=== PATIENT | female | born 1950 | race Caucasian/White ===

== ENCOUNTER → 2017-06-29 | Outpatient (CLI) | payer OTHER ==
[~2017-06-29] MED LIST: ANASTROZOLE1 M1 PO; ASPI-COR81 M1 PO; CLOPIDOGREL75 MG PO; DIABETA5 MG PO; HYDRALAZINE50 MG PO; HYDROCHLOROTH12.5 M2 PO; IRON325 M1 PO; ISOSORBIDE30 MG PO; JANUMET PO; LISINOPRIL/HCTZ1 TA3 PO; LOPRESSOR100 MG PO; LOVASTATIN10 MG PO; METFORMIN1000 MG PO; MULTI VITAMINS1 TAB PO; NATURE'S BLEND F1 MG PO; OSCAL; VIT; VITAMIN D; VITAMIN D32000 UNIT PO; ZOMETA IV
== END | disposition home or self-care (01) ==
LOC: MAMMO 08:39
DX: D05.90 Unspecified type of carcinoma in situ of unspecified breast (principal); Z85.3 Personal history of malignant neoplasm of breast

== ENCOUNTER → 2017-07-24 | Outpatient (CLI) | payer OTHER ==
[2017-07-24 11:51] LABS: INTERNATIONAL NORM RATIO 2.2 (2.0-3.5)
== END | disposition home or self-care (01) ==
LOC: LAB 10:55
PROVIDERS: Internal Medicine
DX: Z95.2 Presence of prosthetic heart valve (principal)

== ENCOUNTER → 2018-04-02 | Outpatient (CLI) | payer OTHER ==
[2018-04-02 11:26] LABS: CREATININE 1.94 mg/dL (0.55-1.02); FREE T4 1.28 ng/dl (0.76-1.46); POTASSIUM 5.1 mmol/L (3.5-5.1); TOTAL PROTEIN 7.9 gm/dL (6.4-8.2)
[2018-04-02 11:32] LABS: THYROID STIM HORMONE (HS) 2.5 uIU/ml (0.358-4.75)
== END | disposition home or self-care (01) ==
LOC: LAB 10:30
PROVIDERS: Internal Medicine
DX: I10 Essential (primary) hypertension (principal); E55.9 Vitamin D deficiency, unspecified

== ENCOUNTER → 2018-07-03 | Outpatient (CLI) | payer OTHER ==
[~2018-07-03] MED LIST changes: +GLUCOPHAGE500 M1 PO; +GLUCOTROL XL5 MG PO; +IRON325 M3 PO; +LOSARTIN PO; +LOVASTATIN PO; +PACERONE PO
== END | disposition home or self-care (01) ==
LOC: MAMMO 12:29
DX: R92.8 Other abnormal and inconclusive findings on diagnostic imaging of breast (principal); C50.919 Malignant neoplasm of unspecified site of unspecified female breast; Z90.11 Acquired absence of right breast and nipple

== ENCOUNTER → 2018-07-30 | Outpatient (CLI) | payer OTHER | END | disposition home or self-care (01) | LOC: LAB 15:14 | DX: N39.0 Urinary tract infection, site not specified (principal) ==

== ENCOUNTER → 2018-08-02 | Outpatient (CLI) | payer OTHER ==
[2018-08-03 05:09] LABS: TOTAL PROTEIN, SERUM 7.4 g/dL (6.0-8.5)
[2018-08-03 11:06] LABS: HEPATITIS B SURFACE AG Negative (Negative); HEPATITIS C VIRUS ANTIBODY <0.1 s/co (0.0-0.9)
[2018-08-03 14:07] LABS: A/G RATIO 1.2 (0.7-1.7); ALBUMIN 4.1 g/dL (2.9-4.4); ALPHA-1-GLOBULIN 0.2 g/dL (0.0-0.4); ALPHA-2-GLOBULIN 0.8 g/dL (0.4-1.0); BETA GLOBULIN 1.1 g/dL (0.7-1.3); GAMMA GLOBULIN 1.2 g/dL (0.4-1.8); GLOBULIN, TOTAL 3.3 g/dL (2.2-3.9); M-SPIKE 0.4 g/dL (Not Observed)
[2018-08-03 15:09] LABS: ATYPICAL PANCA <1:20 titer (Neg:<1:20); CYTOPLASMIC (C-ANCA) <1:20 titer (Neg:<1:20)
[2018-08-06 11:04] LABS: GLOMERULAR BASEMENT AB 082719 5 units (0-20)
[2018-08-06 13:08] LABS: ALBUMIN, URINE 45.7 % (.); ALPHA-1-GLOBULIN, URINE 2.4 % (.); ALPHA-2-GLOBULIN, URINE 11.8 % (.); BETA GLOBULIN, URINE 16.1 % (.); M-SPIKE, % Not Observed % (Not Observed); PROTEIN,TOTAL - URINE RANDOM 44.8 mg/dL (Not Estab.)
== END | disposition home or self-care (01) ==
LOC: LAB 10:59
PROVIDERS: Internal Medicine Nephrology
DX: R10.9 Unspecified abdominal pain (principal); N18.4 Chronic kidney disease, stage 4 (severe)

== ENCOUNTER → 2018-08-15 | Day surgery (SDC) | payer OTHER ==
[~2018-08-15] VITALS: Ht 165.1 cm; Wt 83.5 kg
--- NOTE | ~2018-08-15 | O ---
[place], [place] OPERATIVE NOTE NAME: [facility] MILIAN [facility] [id number] UNIT #: [id number] ROOM: DOCTOR: ZULEMA BURTON MD BIRTHDATE: [birth year] DOS: 08/15/2018 GASTROENDOSCOPIC REPORT HISTORY OF PRESENT ILLNESS: This is a 68-year-old patient who presented with chief complaint of Cologuard positivity. PAST MEDICAL HISTORY: Coronary artery disease, hypertension, diabetes mellitus, and hyperlipidemia. PAST SURGICAL HISTORY: Status post aortic valve, toe amputation, coronary artery stents x 5. ALLERGIES: IODINE. FAMILY HISTORY: Noncontributory. SOCIAL HISTORY: Nonsmoker, nonalcohol consumer. PROCEDURE: Today's procedure part of investigation is colonoscopy plus piecemeal polypectomy. PREMEDICATION: Propofol. SCOPE: Olympus folding colonoscope 10L video. REPORT: After putting the patient in left lateral position and application of lubricant to the scope, the scope was introduced. Thereafter, under direct visualization, advanced through the length of colon without difficulty. Base of the cecum explored, appendiceal orifice was identified and the ileocecal valve was defined. Sessile polypoid lesion in mid ascending colon with piecemeal polypectomy was removed. The patient extubated, tolerated the procedure well. IMPRESSION: Sessile polyp lesion, mid ascending colon, status post piecemeal polypectomy. PLAN: High fiber fruit diet. ACTIVITY: Ad zoila. FOLLOWUP: Routinely in office and with us in GI Clinic. This patient needs another colonoscopy in 5 years. [place], [place] OPERATIVE NOTE NAME: [facility] MILIAN [facility] #: [id number] UNIT #: [id number] ROOM: DOCTOR: ZULEMA BURTON MD BIRTHDATE: [birth year] ZULEMA BURTON MD CM:OPRECORD:OPERATIVE NOTE [id number] ZULEMA BURTON MD 08/15/18 0854 interface
[2018-08-15 07:20] VITALS: BP 167/44
[2018-08-15 08:35] VITALS: BP 114/36
[2018-08-15 08:50] VITALS: BP 132/28
[2018-08-15 09:04] VITALS: BP 116/28
== END | disposition home or self-care (01) ==
LOC: SDC 02:35
DX: D12.2 Benign neoplasm of ascending colon (principal); I10 Essential (primary) hypertension; E11.9 Type 2 diabetes mellitus without complications; E78.00 Pure hypercholesterolemia, unspecified; I25.118 Atherosclerotic heart disease of native coronary artery with other forms of angina pectoris; J44.9 Chronic obstructive pulmonary disease, unspecified; K21.9 Gastro-esophageal reflux disease without esophagitis; Z88.5 Allergy status to narcotic agent; Z88.8 Allergy status to other drugs, medicaments and biological substances; Z95.5 Presence of coronary angioplasty implant and graft; Z98.890 Other specified postprocedural states; Z85.3 Personal history of malignant neoplasm of breast; Z80.0 Family history of malignant neoplasm of digestive organs; Z95.2 Presence of prosthetic heart valve; Z79.82 Long term (current) use of aspirin; Z79.899 Other long term (current) drug therapy; Z89.429 Acquired absence of other toe(s), unspecified side; Z83.3 Family history of diabetes mellitus; Z82.49 Family history of ischemic heart disease and other diseases of the circulatory system

== ENCOUNTER → 2018-09-10 | Outpatient (CLI) | payer OTHER ==
[2018-09-10 13:41] LABS: BASO % 0.6 % (0.0-1.0); EOS # 0.1 10*3/uL (0.0-0.4); EOS % 1.5 % (1.0-4.0); HEMATOCRIT 29.8 % (37.0-47.0); HEMOGLOBIN 9.5 g/dl (12.0-16.0); LYMPH # 1.2 10*3/uL (1.3-4.4); LYMPH % 24.3 % (27.0-41.0); MEAN CELL VOLUME 95.8 fl (81.0-99.0); MEAN CORPUSCULAR HGB 30.5 pg (27.0-31.0); MEAN CORPUSCULAR HGB CONC 31.9 g/dl (33.0-37.0); MEAN PLATELET VOLUME 12.3 fl (9.6-12.3); MONO # 0.3 10*3/uL (0.1-1.0); MONO % 6.2 % (3.0-9.0); NEUT # 3.2 10*3/uL (2.3-7.9); NEUT % 65.5 % (47.0-73.0); PLATELET COUNT AUTOMATED 157 10*3/uL (130-400); RED BLOOD COUNT 3.11 10*6/uL (4.10-5.10); WHITE BLOOD COUNT 4.8 10*3/uL (4.8-10.8)
[2018-09-10 13:52] LABS: CREATININE 1.71 mg/dL (0.55-1.02); POTASSIUM 5.1 mmol/L (3.5-5.1)
[2018-09-10 13:56] LABS: BILIRUBIN NEGATIVE (NEGATIVE); BLOOD 1+ (NEGATIVE); CLARITY CLEAR (CLEAR); COLOR YELLOW (YELLOW); GLUCOSE NEGATIVE (NEGATIVE); KETONE TRACE (NEGATIVE); LEUKO ESTERASE TRACE (NEGATIVE); NITRITE NEGATIVE (NEGATIVE); PH 5.5 (5.0-9.0); SPECIFIC GRAVITY 1.025 (1.005-1.030); UROBILINOGEN 0.2 E.U./dl (0.2-1.0)
[2018-09-10 14:04] LABS: BACTERIA 2+; EPITHELIAL CELLS 0-2
== END | disposition home or self-care (01) ==
LOC: LAB 12:50
PROVIDERS: Internal Medicine Nephrology
DX: N18.4 Chronic kidney disease, stage 4 (severe) (principal)

== ENCOUNTER → 2018-10-26 | Outpatient (CLI) | payer OTHER ==
[2018-11-01 16:08] LABS: ALBUMIN 3.6 g/dL (2.9-4.4); ALPHA-1-GLOBULIN 0.2 g/dL (0.0-0.4); BETA GLOBULIN 1.1 g/dL (0.7-1.3); GAMMA GLOBULIN 1.3 g/dL (0.4-1.8); GLOBULIN, TOTAL 3.6 g/dL (2.2-3.9); M-SPIKE 0.3 g/dL (Not Observed); TOTAL PROTEIN, SERUM 7.2 g/dL (6.0-8.5)
== END | disposition home or self-care (01) ==
LOC: LAB 12:26
PROVIDERS: Internal Medicine Nephrology
DX: N18.4 Chronic kidney disease, stage 4 (severe) (principal)

== ENCOUNTER → 2018-12-06 | Outpatient (CLI) | payer OTHER ==
[2018-12-06 10:15] LABS: BASO % 0.5 % (0.0-1.0); EOS # 0.1 10*3/uL (0.0-0.4); EOS % 0.9 % (1.0-4.0); HEMATOCRIT 33.3 % (37.0-47.0); HEMOGLOBIN 10.2 g/dl (12.0-16.0); LYMPH # 2.4 10*3/uL (1.3-4.4); MEAN CELL VOLUME 97.7 fl (81.0-99.0); MEAN CORPUSCULAR HGB 29.9 pg (27.0-31.0); MEAN CORPUSCULAR HGB CONC 30.6 g/dl (33.0-37.0); MEAN PLATELET VOLUME 12.1 fl (9.6-12.3); MONO # 0.6 10*3/uL (0.1-1.0); MONO % 7.1 % (3.0-9.0); NEUT # 4.7 10*3/uL (2.3-7.9); NEUT % 59.6 % (47.0-73.0); PLATELET COUNT AUTOMATED 163 10*3/uL (130-400); RED BLOOD COUNT 3.41 10*6/uL (4.10-5.10); RED CELL DISTRI WIDTH 16.1 % (0-14.5); WHITE BLOOD COUNT 7.9 10*3/uL (4.8-10.8)
[2018-12-06 10:40] LABS: CREATININE 2.01 mg/dL (0.55-1.02); POTASSIUM 5.5 mmol/L (3.5-5.1); TOTAL PROTEIN 8.5 gm/dL (6.4-8.2)
== END | disposition home or self-care (01) ==
LOC: LAB 09:38 → CT 11:00
PROVIDERS: Urology
DX: R31.9 Hematuria, unspecified (principal)

== ENCOUNTER → 2018-12-12 | Outpatient (CLI) | payer OTHER ==
[2018-12-12 11:51] LABS: BASO # 0.1 10*3/uL (0.0-0.1); BASO % 0.9 % (0.0-1.0); EOS # 0.1 10*3/uL (0.0-0.4); EOS % 1.3 % (1.0-4.0); HEMATOCRIT 32.3 % (37.0-47.0); LYMPH # 1.6 10*3/uL (1.3-4.4); LYMPH % 23.5 % (27.0-41.0); MEAN CELL VOLUME 97.6 fl (81.0-99.0); MEAN CORPUSCULAR HGB 30.2 pg (27.0-31.0); MEAN PLATELET VOLUME 12.3 fl (9.6-12.3); MONO # 0.4 10*3/uL (0.1-1.0); MONO % 6.3 % (3.0-9.0); NEUT # 4.5 10*3/uL (2.3-7.9); NEUT % 66.8 % (47.0-73.0); PLATELET COUNT AUTOMATED 160 10*3/uL (130-400); RED BLOOD COUNT 3.31 10*6/uL (4.10-5.10); RED CELL DISTRI WIDTH 16.1 % (0-14.5); RETICULOCYTE % 2.39 % (0.50-2.50); WHITE BLOOD COUNT 6.7 10*3/uL (4.8-10.8)
[2018-12-12 12:10] LABS: CREATININE 1.94 mg/dL (0.55-1.02); POTASSIUM 5.1 mmol/L (3.5-5.1); TOTAL PROTEIN 8.2 gm/dL (6.4-8.2)
[2018-12-12 12:23] LABS: BILIRUBIN NEGATIVE (NEGATIVE); BLOOD 1+ (NEGATIVE); CLARITY CLEAR (CLEAR); COLOR YELLOW (YELLOW); GLUCOSE NEGATIVE (NEGATIVE); KETONE NEGATIVE (NEGATIVE); LEUKO ESTERASE 1+ (NEGATIVE); NITRITE NEGATIVE (NEGATIVE); PH 5.5 (5.0-9.0); SPECIFIC GRAVITY 1.015 (1.005-1.030); UROBILINOGEN 0.2 E.U./dl (0.2-1.0)
[2018-12-12 12:52] LABS: FERRITIN 212.6 ng/mL (10.0-291.0)
[2018-12-12 13:21] LABS: WBC 16-20 wbc/hpf (0-5)
== END | disposition home or self-care (01) ==
LOC: LAB 11:12
PROVIDERS: Internal Medicine Hematology & Oncology; Nurse Practitioner Family
DX: C50.911 Malignant neoplasm of unspecified site of right female breast (principal); D47.2 Monoclonal gammopathy; D64.9 Anemia, unspecified; E11.9 Type 2 diabetes mellitus without complications; N28.9 Disorder of kidney and ureter, unspecified; I25.10 Atherosclerotic heart disease of native coronary artery without angina pectoris; I10 Essential (primary) hypertension

== ENCOUNTER → 2019-03-04 | Outpatient (CLI) | payer OTHER ==
[~2019-03-04] MED LIST changes: +BRILINTA90 M1 PO; +IMDUR SA30 MG PO; +JANUVIA50 MG PO; +LOVASTATIN40 MG PO; +METOPROLOL TART50 M1 PO; +METOPROLOL25 MG PO; +NOVOLOG FL100 UNIT/2 SQ; +SODIUM BICARBO650 MG PO; +TRADJENTA5 M1 PO
== END | disposition home or self-care (01) ==
LOC: LAB 09:15
DX: E11.65 Type 2 diabetes mellitus with hyperglycemia (principal)

== ENCOUNTER 2019-03-20 09:29 | Emergency (ER) | payer OTHER ==
[~2019-03-20] VITALS: Ht 170.1 cm; Wt 79.4 kg
--- NOTE | ~2019-03-20 | EKG ---
[place], [place] ELECTROCARDIOGRAM REPORT NAME: MATI MILIAN UNIT #: [id number] ROOM: DOCTOR[facility] D[facility] RE[facility] BIRTHDATE: [birth year] [facility] Test Date: 2019-03-20 Test Time: 09:34:56 Pat Name: MATI MILIAN Department: Room: Gender: F Loaf Counter: 15 : 1950 Requested By: JATINDER PETERSON Order Number: [id number] Reading MD: Savita Pisano Measurements Intervals [place] Rate: 104 P: 264 NC: 169 QRS: 86 QRSD: 161 T: -63 QT: 404 QTc: 532 Interpretive Statements Sinus or ectopic atrial tachycardia Ventricular premature complex Right bundle branch block No previous ECG available for comparison Electronically Signed On 03-21-2019 8:37:57 PDT by Savita Pisano CM:EKGRPT:ELECTROCARDIOGRAM REPORT [id number] JATINDER DONIS DRAFT REPORT JATINDER PETERSON M.D.
[~2019-03-20 09:29] MED LIST changes: -BRILINTA90 M1 PO; -IMDUR SA30 MG PO; -JANUVIA50 MG PO; -LOVASTATIN40 MG PO; -METOPROLOL TART50 M1 PO; -METOPROLOL25 MG PO; -NOVOLOG FL100 UNIT/2 SQ; -SODIUM BICARBO650 MG PO; -TRADJENTA5 M1 PO
[2019-03-20 10:02] LABS: BASO % 0.4 % (0.0-1.0); EOS % 0.4 % (1.0-4.0); HEMOGLOBIN 8.9 g/dl (12.0-16.0); LYMPH % 12.5 % (27.0-41.0); MEAN CELL VOLUME 92.3 fl (81.0-99.0); MEAN CORPUSCULAR HGB 27.4 pg (27.0-31.0); MEAN CORPUSCULAR HGB CONC 29.7 g/dl (33.0-37.0); MEAN PLATELET VOLUME 12.9 fl (9.6-12.3); MONO # 0.6 10*3/uL (0.1-1.0); MONO % 6.9 % (3.0-9.0); NEUT # 6.6 10*3/uL (2.3-7.9); NEUT % 79.4 % (47.0-73.0); PLATELET COUNT AUTOMATED 170 10*3/uL (130-400); RED BLOOD COUNT 3.25 10*6/uL (4.10-5.10); RED CELL DISTRI WIDTH 15.7 % (0-14.5); WHITE BLOOD COUNT 8.3 10*3/uL (4.8-10.8)
[2019-03-20 10:32] LABS: ALBUMIN 3.4 gm/dl (3.1-4.5); CREATININE 2.12 mg/dL (0.55-1.02); POTASSIUM 5.1 mmol/L (3.5-5.1); TOTAL PROTEIN 7.6 gm/dL (6.4-8.2)
[2019-03-20 10:37] LABS: TROPONIN I 7.72 ng/ml (<0.045)
[2019-03-20 11:10] VITALS: BP 121/57
[2019-03-20 11:13] LABS: ACT PARTIAL THROMBO TIME 86.1 SECONDS (20.0-32.1); INTERNATIONAL NORM RATIO > 9.3 (2.0-3.5)
== END 2019-03-20 11:44 | disposition short-term general hospital (02) ==
LOC: ED 09:29
PROVIDERS: Emergency Medicine
DX: I21.4 Non-ST elevation (NSTEMI) myocardial infarction (principal); I25.2 Old myocardial infarction; I50.9 Heart failure, unspecified; Z91.041 Radiographic dye allergy status; Z79.82 Long term (current) use of aspirin; Z79.899 Other long term (current) drug therapy

== ENCOUNTER 2019-04-23 11:25 | Inpatient (IN) | payer OTHER ==
[~2019-04-23] VITALS: Ht 170.2 cm; Wt 69.4 kg
--- NOTE | ~2019-04-23 | CON ---
[place], [place] REPORT OF CONSULTATION NAME: MATI MILIAN UNIT #: [id number] ROOM: 412 DOCTOR: MICHEAL JOHNSON,ZULEMA BIRTHDATE: [birth year] DOS: 04/26/2019 GASTROENDOSCOPIC REPORT HISTORY OF PRESENT ILLNESS: This is a 69-year-old patient who has presented with chief complaint of multiple medical history, among which has been anemia, breast CA and coronary artery disease, under investigation. PAST MEDICAL HISTORY: Associated with hyperlipidemia, hypertension, hypothyroidism, coronary artery disease, renal insufficiency, diabetes mellitus, breast CA. PAST SURGICAL HISTORY: Associated with mastectomy aortic valve prosthesis. FAMILY HISTORY: Noncontributory. ALLERGIES: IVP DYE, IODINE. MEDICATIONS: List has been reviewed, aspirin and iron has been noticed. MEDICATIONS: List has been reassessed. REVIEW OF SYSTEMS: HEENT: Denies double vision, blurred vision. RESPIRATORY: Denies acute shortness of breath. CARDIOVASCULAR: Denies acute chest pain. DIGESTIVE SYSTEM: No hematemesis, no hematochezia. PHYSICAL EXAMINATION: GENERAL: Nontoxic patient. HEENT: Head normocephalic, nontraumatic. Mouth and buccal mucosa benign. NECK: Supple, no thyromegaly, no cervical lymphadenopathy. CHEST: Symmetric anatomy, equal expansion. No wheeze, no rhonchi. HEART: Normal sinus rhythm, no gallop, no murmur. Right breast mastectomy noticed. ABDOMEN: Soft. No hepato-organomegaly. Bowel sounds present. No pulsatile mass. EXTREMITIES: No cyanosis, no pedal edema. NEUROLOGIC: Alert and oriented to time, place, and person. IMPRESSION: Anemia with need of transfusion, unstable myocardial infarction, coronary artery disease and obstruction that has been addressed by Dr. Ko, diabetes mellitus, hyperlipidemia, breast CA, aortic valve prosthesis anticoagulation on antiplatelet therapy. Latest lab results and records reviewed. Initial H and H of 8 and 27 on the , subsequent transfusion, subsequent improvement to 10 and 3, H and H. Labs reviewed. Comprehensive metabolic panel reassessed. Liver function tests normal. PLAN AND DISCUSSION: I would suggest that this patient may require needing an endoscopic assessment of upper GI tract since she has had a colonoscopy in [place], [place] REPORT OF CONSULTATION NAME: MATI MILIAN UNIT #: [id number] ROOM: 412 DOCTOR: MICHEAL JOHNSON,ZULEMA BIRTHDATE: [birth year]. Her anemia, most likely secondary to anticoagulation therapy if not any ulceration history on board. OTHER ADJUNCTIVE DIAGNOSES: As outlined above. We will continue workup. ZULEMA BURTON MD CM:CONSTR:REPORT OF CONSULTATION 12 05/10/19 0951 interface
--- NOTE | ~2019-04-23 | PR ---
[place], [place] PROGRESS NOTE NAME: MATI MILIAN [facility] #: [id number] UNIT #: [id number] ROOM: 412 DOCTOR: CAMILLA ELIZONDO MD BIRTHDATE: [birth year] DOS: 05/01/[address] Ko. SUBJECTIVE: She has coronary artery disease and had coronary artery stenting done recently and was admitted to the hospital because of some abdominal pain and she had an EGD done yesterday, which demonstrated gastritis. She does not have any nausea. Appetite is fine. She has not had any cough or any fever or chills. There had not been any chest pain or palpitations. No PND or orthopnea. She has not ambulated much since admission. PHYSICAL EXAMINATION: GENERAL: This revealed the patient is very pleasant, alert. She looks pale. VITAL SIGNS: Pulse is 70 and regular, blood pressure was 126/54. NECK: Normal JVP. AJR is negative. EXTREMITIES: No edema in the lower extremities. RESPIRATORY: Breath sounds are fairly decent with a few rhonchi and some crackles. ABDOMEN: Minimal epigastric tenderness. Bowel sounds are normoactive. IMPRESSION: 1. This patient has severe ischemic cardiomyopathy and has a LifeVest on. An echocardiogram will be done in 3 months from starting of the treatment and further management will depend on how well LV recovers. 2. Left submammary pain and irritation from LifeVest has improved. From cardiac standpoint, she can be discharged to home with a followup with Dr. Ko as previously agreed upon. CAMILLA ELIZONDO MD CM:PNTRANS 1210 02 CAMILLA ELIZONDO MD 05/01/194 interface
--- NOTE | ~2019-04-23 | EKG ---
[place], [place] ELECTROCARDIOGRAM REPORT NAME: MATI MILIAN UNIT #: [id number] ROOM: 412 DOCTOR: JEWELS DRAFT REPORT BIRTHDATE: [birth year] [facility] Test Date: 2019-04-23 Test Time: 16:52:03 Pat Name: MATI MILIAN Department: Room: 412 Gender: F Pediatric Radiologist: TL : 1950 Requested By: JATINDER PETERSON Order Number: [id number] Reading MD: Quincy Waterman MD Measurements Intervals [place] Rate: 50 P: 83 [place]: 178 QRS: 16 QRSD: 106 T: 164 QT: 523 QTc: 477 Interpretive Statements Sinus bradycardia LVH with secondary repolarization abnormality Baseline wander in lead(s) V4 Compared to ECG 03/20/2019 09:34:56 Left ventricular hypertrophy now present Early repolarization now present Ventricular premature complex(es) no longer present Right bundle-branch block no longer present Electronically Signed On 04-24-2019 7:36:14 PDT by Quincy Waterman MD CM:EKGRPT:ELECTROCARDIOGRAM REPORT 1652 0736 JATINDER DONIS DRAFT REPORT JATINDER PETERSON M.D.
--- NOTE | ~2019-04-23 | CON ---
[place], [place] REPORT OF CONSULTATION [id number] UNIT #: [id number] ROOM: 412 DOCTOR: CAMILLA ELIZONDO MD BIRTHDATE: [birth year] DOS: 04/24/2019 The patient was seen on behalf of Dr. Ko. HISTORY OF PRESENT ILLNESS: This is a 69-year-old -[place] woman with a history of coronary artery disease. She has had ischemic cardiomyopathy and a week or two ago, Dr. Ko did angioplasty and stent to the left anterior descending artery and she had a severely reduced LV systolic function; therefore, a LifeVest was also ordered, which she has been wearing. She has essential hypertension, hyperlipidemia, chronic kidney disease stage 3 and chronic systolic heart failure. She has never had a stroke, COPD or cancer. This patient has insulin-dependent diabetes mellitus. She does not smoke cigarettes. She had gone to see Dr. Ko in the office yesterday and she was found to be bradycardic and her beta pham was reduced by him. She went home and felt rather weak and dizzy. She did not have any shortness of breath, and no PND, orthopnea, or swelling of the lower extremities and came to the Emergency Department from where she was admitted to the hospital. In the ER, blood pressure was 135/36, pulse was 52. HOME MEDICATIONS: Include aspirin 81 daily, ferrous sulfate, folic acid, glipizide, isosorbide mononitrate, Tradjenta, lovastatin, metoprolol 25 mg b.i.d., Januvia, ticagrelor/Brilinta 90 mg b.i.d. and insulin 100 units subcutaneous in the evening. PHYSICAL EXAMINATION: GENERAL: This reveals a patient who is somewhat lethargic, but she is alert, oriented, looks pale. She is not diaphoretic. There is no jaundice or cyanosis. VITAL SIGNS: Pulse is regular at 60 beats per minute, blood pressure 128/49. NECK: JVP is normal. AJR appears to be negative. There is no carotid bruit. HEART: She has mild parasternal heave and there is a grade 2/6 pansystolic murmur over the apex. EXTREMITIES: No edema in lower extremities. Pedal pulses are palpable. RESPIRATORY: Lungs are clear to auscultation with good breath sounds. ABDOMEN: Liver is not enlarged. There is no pulsatile mass. Bowel sounds are normal. DIAGNOSTIC DATA: An ECG showed sinus bradycardia at 52 beats per minute and anteroseptal myocardial infarction with minimal ST segment depression in the lateral leads. No serial change on the ECG is identified. LABORATORY DATA: Troponin I level was 0.074, which may be from ischemic cardiomyopathy and recent intervention of left anterior descending artery. BUN is 32, creatinine 1.74 and hemoglobin is 7.3 g/dL. IMPRESSION: 1. This patient has generalized weakness. I think this is probably [place], [place] REPORT OF CONSULTATION NAME: MATI MILIAN UNIT #: [id number] ROOM: 412 DOCTOR: CAMILLA ELIZONDO MD BIRTHDATE: [birth year] multifactorial, which would include the beta pham, metoprolol may be causing lethargy; bradycardia is probably contributing to this. I think anemia is quite severe and that is probably causing fatigue and lethargy as well. 2. She has ischemic cardiomyopathy, which is well compensated. 3. Coronary artery disease is asymptomatic. Slightly increased troponin I level. I believe is not due to coronary occlusion, it is probably also likely to be type 2 myocardial infarction such as with severe anemia, bradycardia. RECOMMENDATIONS: Beta pham has already been lowered and heart rate is about 60, which is fine. She also has quite a bit of abrasion under the left breast from edge of the LifeVest that she has. I think my recommendation is just to pull this down and tape it to the abdominal wall so it does not rub against the inframammary area. I discussed this with Dr. Ko, who will be here to see her tomorrow. I also recommend she be transfused with 1 or 2 units of packed cells to increase her hemoglobin to 9 grams or so. I thank you on behalf of Dr. Ko for this consult. CAMILLA ELIZONDO MD CM:CONSTR:REPORT OF CONSULTATION 1130 04/24/19 6825 interface
--- NOTE | ~2019-04-23 | EKG ---
[place], [place] ELECTROCARDIOGRAM REPORT NAME: MATI MILIAN UNIT #: [id number] ROOM: 412 DOCTOR: JEWELS DRAFT REPORT BIRTHDATE: [birth year] [facility] Test Date: 2019-04-23 Test Time: 11:28:13 Pat Name: MATI MILIAN Department: Room: 412 Gender: F Mineral Engineer: : 1950 Requested By: JATINDER PETERSON Order Number: [id number] Reading MD: Quincy Waterman MD Measurements Intervals [place] Rate: 52 P: 78 [place]: 183 QRS: 35 QRSD: 95 T: 145 QT: 456 QTc: 424 Interpretive Statements Sinus bradycardia Anteroseptal infarct, old Borderline repolarization abnormality Compared to ECG 03/20/2019 09:34:56 Myocardial infarct finding now present Ventricular premature complex(es) no longer present Right bundle-branch block no longer present Electronically Signed On 04-24-2019 7:34:26 PDT by Quincy Waterman MD CM:EKGRPT:ELECTROCARDIOGRAM REPORT 1128 0734 JATINDER DONIS DRAFT REPORT JATINDER PETERSON M.D.
--- NOTE | ~2019-04-23 | CON ---
[place], [place] REPORT OF CONSULTATION [id number] UNIT #: [id number] ROOM: 412 DOCTOR: ANSELMO BURTON MDDIAZASHANTI BIRTHDATE: [birth year] DOS: 05/01/2019 GASTROENDOSCOPIC CONSULTATION REPORT HISTORY OF PRESENT ILLNESS: This is a 69-year-old patient who has presented with multiple medical issues. She has been in the hospital since 04/24/2019, and one of the issues is guaiac positivity, profound anemia with microcytic indices that she has been following up. Meanwhile, initially she was having platelet of 124 which we are concerned the source of the borderline thrombocytopenia. She was meanwhile was found renal insufficiency with a GFR of 45. Her H and H repeatedly reassessed and confirmed to be anemic. Her B12 and folate and ferritin all were assessed, they were all within normal limit and better even. Her iron level was borderline low. PAST MEDICAL HISTORY: Coronary artery disease, renal insufficiency, diabetes, hypertension, systolic congestive failure, and also atypical chest pain. FAMILY HISTORY: Noncontributory. ALLERGIES: IVP DYE, IODINE. PAST SURGICAL HISTORY: Status post right mastectomy, chemoradiation in 2008, and right middle toe amputation as well. MEDICATIONS: List was reviewed. The patient has been on aspirin and iron supplementation as far as GI system is concerned. REVIEW OF SYSTEMS: HEENT: Denies double vision, blurred vision. RESPIRATORY: Denies acute shortness of breath. CARDIOVASCULAR: Atypical chest distress. DIGESTIVE SYSTEM: No hematemesis, no hematochezia. Anemia, however. EXTREMITIES: Lower extremities stasis dermatitis, trace edema was noticed. PHYSICAL EXAMINATION: HEENT: Within normal limit. NECK: Supple, no thyromegaly, no cervical lymphadenopathy. CHEST: Symmetric anatomy, equal expansion. No wheeze, no rhonchi. HEART: Normal sinus rhythm, no gallop, no murmur. ABDOMEN: Soft. No hepato-organomegaly. Bowel sounds present. EXTREMITIES: Trace pedal edema. Stasis dermatitis. NEUROLOGIC: Alert, oriented to time, place, person. Sensory, motor intact. Cranial nerves 2-12 intact. LABORATORY DATA: Reviewed. Records reviewed. IMPRESSION: Anemia. Iron deficiency, history of right breast carcinoma, status post mastectomy, status post iron therapy, aspirin therapy, systemic hypertension, non-ST elevation myocardial infarction, diabetes mellitus, and hyperlipidemia. All has been reviewed. [place], [place] REPORT OF CONSULTATION NAME: MATI MILIAN UNIT #: [id number] ROOM: 412 DOCTOR: ZULEMA BURTON MD BIRTHDATE: [birth year] PLAN AND DISCUSSION: Other adjunctive diagnoses as discussed above. She is following with Dr. De La Fuente of Oncology in [facility]. She has had a colonoscopy done at latter part of last year and we are going to therefore proceed with endoscopy of upper GI tract. Understanding that our target concern is microcytic anemia, iron deficiency, breast CA, renal insufficiency contribution, status post chemoradiation contribution, concern about underlying residual pathology from the above-mentioned. EGD today. Thank you very much indeed. Labs reviewed, records reviewed. Latest H and H 8.7 and 28, B12 normal posttransfusion. ZULEMA BURTON MD CM:CONSTR:REPORT OF CONSULTATION 7 05/10/19 0953 interface
--- NOTE | ~2019-04-23 | O ---
[place], [place] OPERATIVE NOTE [id number] UN[facility] #: [id number] ROOM: 412 DOCTOR: MICHEAL JOHNSON,ZULEMA BIRTHDATE: [birth year] DOS: 04/23/2019 INDICATIONS: This is a 69-year-old patient who has presented with chief complaint of anemia, guaiac positivity, undergoing investigation. The patient is on aspirin product. PROCEDURE: Today's procedure part of investigation is panendoscopy plus biopsy. PREMEDICATION: Propofol. SCOPE: Olympus forward-viewing gastroscope Q10 video. REPORT: After putting the patient in left lateral position and application of lubricant to the scope, the scope was introduced. Thereafter under direct visualization, advanced through the length of esophagus without difficulty. Distal esophageal lower third of the esophagus ulceration was noticed. This is well scarred, photographed, margin of which was biopsied. Hiatal hernia noticed. Gastric pouch was entered. Gastric erosions multisite was noticed. Duodenal bulb, second and third part within normal limit. The patient extubated after biopsies from antrum and biopsies from margin of the ulcers of the esophagus was obtained. PLAN AND DISCUSSION: We are going to keep this patient on Protonix 40 mg IV b.i.d. We are going to keep her on Carafate 2 grams slurry q.i.d. while inpatient and as outpatient, we are going to continue with Protonix 1 a day. We are going to remove the aspirin. We are going to ask her to Extra Strength Gaviscon after breakfast and 5 minutes before going to bed and in 2 months, we are going to have another EGD. Follow up on the ulcer biopsy. I am concerned about distal esophageal ulcer in the lower third of the esophagus. ZULEMA BURTON MD CM:OPRECORD:OPERATIVE NOTE 1118 1144 ZULEMA BURTON MD 05/01/19 1144 interface
--- NOTE | ~2019-04-23 | PR ---
[place], [place] PROGRESS NOTE NAME: MATI MILIAN UNIT #: [id number] ROOM: 412 DOCTOR: MATT BYRD MD BIRTHDATE: [birth year] DOS: 04/25/2019 SUBJECTIVE: A 69-year-old woman with severe ischemic cardiomyopathy on LifeVest, status post intervention, admitted with significant bradycardia and weakness. Beta blockers have been reduced and the heart rate is still running on the lower side 50s, but she is in sinus rhythm. Blood pressure is 115/50. Denies any chest discomfort. She has positive balance of 1160. REVIEW OF SYSTEMS: A 6-8 systems reviewed, slightly weak and no chest discomfort. No palpitations, no shortness of breath. Does have some wound under left breast secondary to LifeVest irritation. Dr. Rojas saw on behalf of me yesterday. PHYSICAL EXAMINATION: VITAL SIGNS: Blood pressure as mentioned. NECK: Supple, no JVD. LUNGS: Diminished breath sounds. HEART: Sounds are regular. ABDOMEN: Soft, nontender. NEUROLOGIC: Stable. LABORATORY DATA: Hemoglobin 7, hematocrit 24.3. Iron is 25, which is low. TIBC is 170, low. IMPRESSION AND PLAN: The patient with a recent intervention and anemia. The patient is severely anemic that probably is contributing to her weakness and lethargy. Hemoglobin is 7. Should get at least 2 units of blood to keep the hemoglobin above 9. Watch for any signs of upper GI bleed. She used to be on Coumadin, which has been discontinued. She is on Brilinta; however, because of the recent intervention. We will hold the aspirin at this point and continue the Brilinta. If needed decrease it to 60 b.i.d. because of her chronic anemia, decrease the metoprolol to 12.5 b.i.d. and decrease isosorbide to 30 mg once a day and we will closely followup. Long-term prognosis is poor. The patient is to repeat her echocardiogram in about 2 months. If the ejection fraction less than 35%, she needs an ICD. [place], [place] PROGRESS NOTE NAME: MATI MILIAN UNIT #: [id number] ROOM: 412 DOCTOR: MATT BYRD MD BIRTHDATE: [birth year] MATT BYRD MD CM:PNTRANS 0758 [id number] MATT BYRD MD 05/14/19 0920 interface
--- NOTE | ~2019-04-23 | PR ---
[place], [place] PROGRESS NOTE [id number] #: [id number] ROOM: 412 DOCTOR: CAMILLA ELIZONDO MD BIRTHDATE: [birth year] DOS: 04/29/[address] Gardner. SUBJECTIVE: The patient has ischemic cardiomyopathy and has a LifeVest on. She has not had any breathing difficulty. No palpitation or dizziness. She has walked in the room, but not in the hallway. She has been eating okay. Mood has been fairly decent. PHYSICAL EXAMINATION: GENERAL: This is a patient who is alert, oriented, comfortable. She looks little pale. VITAL SIGNS: Pulse is regular at 64 beats per minute, blood pressure 120/72. NECK: JVP is normal. LUNGS: Breath sounds are diminished with few adventitious sounds. EXTREMITIES: No edema in lower extremities. IMPRESSION: This patient has coronary artery disease and ischemic cardiomyopathy and is stable. There have not been any dysrhythmias. Her renal function has improved. No new recommendations. CAMILLA ELIZONDO MD CM:PNTRANS [phone] CAMILLA ELIZONDO MD 04/29/19 9697 interface
--- NOTE | ~2019-04-23 | EKG ---
[place], [place] ELECTROCARDIOGRAM REPORT NAME: MATI MILIAN UNIT #: [id number] ROOM: 412 DOCTOR: JEWELS DRAFT REPORT BIRTHDATE: [birth year] [facility] Test Date: 2019-04-23 Test Time: 14:27:47 Pat Name: MATI MILIAN Department: Room: 412 Gender: F Machine Sign Writer: TL : 1950 Requested By: JATINDER PETERSON Order Number: [id number] Reading MD: Quincy Waterman MD Measurements Intervals [place] Rate: 53 P: 72 MD: 178 QRS: 19 QRSD: 100 T: 210 QT: 501 QTc: 471 Interpretive Statements Sinus bradycardia Probable LVH with secondary repol abnrm Anterior ST elevation, probably due to LVH Baseline wander in lead(s) V3,V4,V5,V6 Compared to ECG 03/20/2019 09:34:56 Left ventricular hypertrophy now present ST (T wave) deviation now present Ventricular premature complex(es) no longer present Right bundle-branch block no longer present Electronically Signed On 04-24-2019 7:35:57 PDT by Quincy Waterman MD CM:EKGRPT:ELECTROCARDIOGRAM REPORT 1427 0735 JATINDER DONIS DRAFT REPORT JATINDER PETERSON M.D.
--- NOTE | ~2019-04-23 | PR ---
[place], [place] PROGRESS NOTE NAME[id number] UNIT #: [id number] ROOM: 412 DOCTOR: CAMILLA ELIZONDO MD BIRTHDATE: [birth year] DOS: 04/26/2019 I am seeing this patient on behalf of Dr. Gardner. SUBJECTIVE: I saw this patient about 2 days ago. She has ischemic cardiomyopathy and had bradycardia and severe anemia, which probably contributing to marked fatigue and tiredness that does the patient have. She received 2 units of packed RBCs and her hemoglobin sylvia from 7 to 10.3 g/dL today. She is not short of breath. She feels pretty good. No chest pain or palpitations and does not have any swelling of the legs. She has not walked since admission. She has a LifeVest on. PHYSICAL EXAMINATION: GENERAL: This is a patient whose complex is pretty decent. VITAL SIGNS: Temperature is normal, pulse is 66 regular, blood pressure 134/58. NECK: JVP is normal. AJR appears to be negative. LUNGS: Clear. EXTREMITIES: There is very minimal pitting edema of the lower extremities. IMPRESSION: 1. Sinus bradycardia has resolved. Rate is in the 60s now. 2. Fatigue is also improving. 3. Ischemic cardiomyopathy is well compensated. RECOMMENDATIONS: Since I think metoprolol is likely to be part of the etiology of fatigue, I think carvedilol may be a better choice, which is less likely to cause fatigue. Therefore, she will be started on a tiny dose of 3.125 mg b.i.d. and should tolerate this and if heart rate does go up, then dose can be increased. CAMILLA ELIZONDO MD CM:PNTRANS 1638 [id number] CAMILLA ELIZONDO MD 04/27/19 0446 interface
--- NOTE | ~2019-04-23 | PR ---
[place], [place] PROGRESS NOTE [id number] UNIT #: [id number] ROOM: 412 DOCTOR: MATT BYRD MD BIRTHDATE: [birth year] DOS: 04/28/2019 SUBJECTIVE: The patient has done extremely well from the cardiac point of view. Weakness significantly improved. Alert and responsive, but better than before her weakness. The patient still feels very difficult to go home and she has been referred for rehabilitation. OBJECTIVE: VITAL SIGNS: Blood pressure today is 114/70, heart rate is 61 and regular. She is positive 1 liter. REVIEW OF SYSTEMS: A 6-8 systems reviewed, stable. PHYSICAL EXAMINATION: HEENT: Unremarkable. NECK: Supple, no JVD. LUNGS: Clear. HEART: Sounds are regular. ABDOMEN: Soft, nontender. EXTREMITIES: No edema. LABORATORY DATA: Sodium 142, potassium 3.9, creatinine is 1.0, which is much better. Hemoglobin 9.1, hematocrit 30.6. History of mastectomy severe anemia bradyarrhythmia, left ventricular dysfunction, status post intervention and chronic kidney disease. The patient has significantly improved compared to before. RECOMMENDATIONS: Continue the present medications. TSH is low. The patient is being followed by Dr. Waterman. The patient to be transferred to rehabilitation. MATT BYRD MD CM:PNTRANS [id number] MATT BYRD MD 04/28/191958 interface
--- NOTE | ~2019-04-23 | PR ---
[place], [place] PROGRESS NOTE NAME: [facility] MILIAN [facility] [id number] UNIT #: [id number] ROOM: 412 DOCTOR: MATT BYRD MD BIRTHDATE: [birth year] DOS: 04/30/2019 SUBJECTIVE: The patient examined, hemodynamically stable, alert, and responsive heart rate is regular. His rate is much improved 75. Blood pressure is also significantly improved. Denies any nausea, vomiting, chest pain, or shortness of breath. As mentioned, blood pressure is stable. REVIEW OF SYSTEMS: A 6-8 systems reviewed, stable. OBJECTIVE: VITAL SIGNS: Today blood pressure 104/30, is heart rate 60s. NECK: Supple, no JVD. LUNGS: Diminished breath sounds. HEART: Sounds are regular. NEUROLOGIC: Stable. LABORATORY DATA: Hemoglobin 8.7, hematocrit 28.5. Electrolytes are normal. Creatinine is 1.1. IMPRESSION: Ischemic cardiomyopathy, LifeVest on; diabetes; hypertension; peripheral vascular disease; chronic anemia. RECOMMENDATIONS: The patient is scheduled for an EGD on 05/01/2019. H and H is stable. Unfortunately, cannot stop the antiplatelet drugs at this point because of recent stenting, it is too risky and I will follow up. MATT BYRD MD CM:PNTRANS [id number] MATT BYRD MD 05/14/19 0922 interface
[2019-04-23 11:27] VITALS: BP 127/37
[2019-04-23 11:47] LABS: BASO % 0.4 % (0.0-1.0); EOS % 0.2 % (1.0-4.0); HEMATOCRIT 27.9 % (37.0-47.0); HEMOGLOBIN 8.4 g/dl (12.0-16.0); LYMPH # 0.9 10*3/uL (1.3-4.4); LYMPH % 19.5 % (27.0-41.0); MEAN CELL VOLUME 91.2 fl (81.0-99.0); MEAN CORPUSCULAR HGB 27.5 pg (27.0-31.0); MEAN CORPUSCULAR HGB CONC 30.1 g/dl (33.0-37.0); MEAN PLATELET VOLUME 13.6 fl (9.6-12.3); MONO # 0.4 10*3/uL (0.1-1.0); MONO % 9.3 % (3.0-9.0); NEUT # 3.3 10*3/uL (2.3-7.9); PLATELET COUNT AUTOMATED 158 10*3/uL (130-400); RED BLOOD COUNT 3.06 10*6/uL (4.10-5.10); RED CELL DISTRI WIDTH 16.9 % (0-14.5); WHITE BLOOD COUNT 4.7 10*3/uL (4.8-10.8)
[2019-04-23 11:57] LABS: ACT PARTIAL THROMBO TIME 22.2 SECONDS (20.0-32.1); INTERNATIONAL NORM RATIO 1.2 (2.0-3.5)
[2019-04-23 12:03] LABS: ALBUMIN 2.9 gm/dl (3.1-4.5); CREATININE 1.74 mg/dL (0.55-1.02); POTASSIUM 4.2 mmol/L (3.5-5.1); TOTAL PROTEIN 6.8 gm/dL (6.4-8.2)
[2019-04-23 12:07] LABS: TROPONIN I 0.063 ng/ml (<0.045)
[2019-04-23 12:10] VITALS: BP 135/39
[2019-04-23 12:36] VITALS: BP 121/31
[2019-04-23 13:22] VITALS: BP 135/36
[2019-04-23 14:00] VITALS: BP 118/50
[2019-04-23] MEDS ORDERED: IMDUR SA30 MG PO (14:50)
[2019-04-23] MEDS ORDERED: LOVASTATIN40 MG PO (14:51)
[2019-04-23] MEDS ORDERED: SODIUM BICARBO650 MG PO (14:52)
[2019-04-23] MEDS ORDERED: BRILINTA90 M1 PO (14:52)
[2019-04-23] MEDS ORDERED: NOVOLOG FL100 UNIT/2 SQ (14:52)
[2019-04-23] MEDS ORDERED: JANUVIA50 MG PO (14:53)
[2019-04-23] MEDS ORDERED: METOPROLOL TART50 M1 PO (14:53)
[2019-04-23] MEDS ORDERED: TRADJENTA5 M1 PO (14:53)
[2019-04-23] MEDS ORDERED: METOPROLOL25 MG PO (18:12)
[2019-04-23 18:19] LABS: BILIRUBIN NEGATIVE (NEGATIVE); BLOOD TRACE-INTACT (NEGATIVE); CLARITY CLEAR (CLEAR); COLOR YELLOW (YELLOW); GLUCOSE NEGATIVE (NEGATIVE); KETONE NEGATIVE (NEGATIVE); LEUKO ESTERASE 2+ (NEGATIVE); NITRITE NEGATIVE (NEGATIVE); UROBILINOGEN 0.2 E.U./dl (0.2-1.0)
[2019-04-23 18:28] LABS: BACTERIA 2+; WBC 41-50 wbc/hpf (0-5)
[2019-04-23 18:29] LABS: MUCOUS 1+
[2019-04-23 20:00] VITALS: BP 111/70
[2019-04-24] VITALS: BP 128/49
[2019-04-24 07:22] LABS: BASO % 0.8 % (0.0-1.0); EOS % 0.8 % (1.0-4.0); HEMATOCRIT 25.2 % (37.0-47.0); HEMOGLOBIN 7.3 g/dl (12.0-16.0); LYMPH # 0.9 10*3/uL (1.3-4.4); LYMPH % 23.5 % (27.0-41.0); MEAN CELL VOLUME 92.3 fl (81.0-99.0); MEAN CORPUSCULAR HGB 26.7 pg (27.0-31.0); MEAN PLATELET VOLUME 13.7 fl (9.6-12.3); MONO # 0.3 10*3/uL (0.1-1.0); MONO % 8.6 % (3.0-9.0); NEUT # 2.6 10*3/uL (2.3-7.9); NEUT % 65.5 % (47.0-73.0); PLATELET COUNT AUTOMATED 124 10*3/uL (130-400); RED BLOOD COUNT 2.73 10*6/uL (4.10-5.10); RED CELL DISTRI WIDTH 17.1 % (0-14.5)
[2019-04-24 07:49] LABS: ALBUMIN 2.6 gm/dl (3.1-4.5); ALKALINE PHOSPHATASE 98 U/L (45-117); BUN 28 mg/dl (7-24); CHLORIDE 113 mmol/L (98-107); CHOLESTEROL 64 mg/dL (<200); CREATININE 1.42 mg/dL (0.55-1.02); HDL CHOLESTEROL 25 mg/dl (40-60); LDL CHOLESTEROL 15 mg/dL (9-159); SGOT/AST 32 IU/L (3-35); SGPT/ALT 25 U/L (12-78); SODIUM 141 mmol/L (136-145); TRIGLYCERIDES 119 mg/dl (<150); VLDL CHOLESTEROL 24 mg/dL (6-40)
[2019-04-24 07:57] LABS: THYROID STIM HORMONE (HS) < 0.005 uIU/ml (0.358-4.75)
[2019-04-24 11:05] VITALS: BP 141/91; BP 141/99
[2019-04-24 11:39] VITALS: BP 108/50
[2019-04-24 12:00] VITALS: BP 142/41
[2019-04-24 16:00] VITALS: BP 106/37
[2019-04-24 20:00] VITALS: BP 124/60
[2019-04-25] VITALS (8 sets, daily range): BP systolic 101–127; BP diastolic 49–93
[2019-04-25 06:51] LABS: BASO % 0.8 % (0.0-1.0); EOS # 0.1 10*3/uL (0.0-0.4); EOS % 1.3 % (1.0-4.0); HEMATOCRIT 24.3 % (37.0-47.0); MEAN CELL VOLUME 94.2 fl (81.0-99.0); MEAN CORPUSCULAR HGB 27.1 pg (27.0-31.0); MEAN CORPUSCULAR HGB CONC 28.8 g/dl (33.0-37.0); MEAN PLATELET VOLUME 13.6 fl (9.6-12.3); MONO # 0.4 10*3/uL (0.1-1.0); MONO % 10.9 % (3.0-9.0); NEUT # 2.3 10*3/uL (2.3-7.9); NEUT % 59.2 % (47.0-73.0); RED BLOOD COUNT 2.58 10*6/uL (4.10-5.10); RED CELL DISTRI WIDTH 16.9 % (0-14.5); WHITE BLOOD COUNT 3.9 10*3/uL (4.8-10.8)
[2019-04-25 07:01] LABS: PLATELET COUNT AUTOMATED 125 10*3/uL (130-400)
[2019-04-25 07:06] LABS: PHOSPHOROUS 2.6 mg/dL (2.5-4.9)
[2019-04-25 07:08] LABS: FREE T4 5.46 ng/dl (0.76-1.46)
[2019-04-25 07:48] LABS: FERRITIN 530.7 ng/mL (10.0-291.0); VITAMIN D, 25-HYDROXY 28.8 ng/mL (30-100)
[2019-04-25 09:21] LABS: IRON 42 ug/dL (50-170); TOTAL IRON BINDING CAPACITY 350 ug/dl (250-450)
[2019-04-25 09:37] LABS: THYROID STIM HORMONE (HS) < 0.005 uIU/ml (0.358-4.75)
[2019-04-26] VITALS: BP 119/40
[2019-04-26 08:00] VITALS: BP 130/70
[2019-04-26 09:09] LABS: BASO % 0.6 % (0.0-1.0); EOS # 0.1 10*3/uL (0.0-0.4); EOS % 1.7 % (1.0-4.0); HEMATOCRIT 33.3 % (37.0-47.0); HEMOGLOBIN 10.3 g/dl (12.0-16.0); LYMPH # 1.1 10*3/uL (1.3-4.4); LYMPH % 23.2 % (27.0-41.0); MEAN CELL VOLUME 90.5 fl (81.0-99.0); MEAN CORPUSCULAR HGB CONC 30.9 g/dl (33.0-37.0); MEAN PLATELET VOLUME 12.9 fl (9.6-12.3); MONO # 0.5 10*3/uL (0.1-1.0); MONO % 10.2 % (3.0-9.0); NEUT % 63.3 % (47.0-73.0); NUCLEATED RED BLOOD CELL 0.4 % (0.0-0.0); PLATELET COUNT AUTOMATED 123 10*3/uL (130-400); RED BLOOD COUNT 3.68 10*6/uL (4.10-5.10); RED CELL DISTRI WIDTH 17.8 % (0-14.5); WHITE BLOOD COUNT 4.8 10*3/uL (4.8-10.8)
[2019-04-26 09:18] LABS: ALBUMIN 2.4 gm/dl (3.1-4.5); CREATININE 1.24 mg/dL (0.55-1.02)
[2019-04-26 12:00] VITALS: BP 112/50
[2019-04-26 16:00] VITALS: BP 135/58
[2019-04-26 20:00] VITALS: BP 126/58
[2019-04-27] VITALS: BP 114/42
[2019-04-27 06:09] LABS: BASO % 0.3 % (0.0-1.0); EOS # 0.1 10*3/uL (0.0-0.4); EOS % 2.5 % (1.0-4.0); HEMATOCRIT 30.6 % (37.0-47.0); HEMOGLOBIN 9.1 g/dl (12.0-16.0); LYMPH # 0.9 10*3/uL (1.3-4.4); LYMPH % 26.6 % (27.0-41.0); MEAN CELL VOLUME 92.2 fl (81.0-99.0); MEAN CORPUSCULAR HGB 27.4 pg (27.0-31.0); MEAN CORPUSCULAR HGB CONC 29.7 g/dl (33.0-37.0); MEAN PLATELET VOLUME 13.5 fl (9.6-12.3); MONO # 0.3 10*3/uL (0.1-1.0); MONO % 10.3 % (3.0-9.0); NEUT # 1.9 10*3/uL (2.3-7.9); PLATELET COUNT AUTOMATED 103 10*3/uL (130-400); RED BLOOD COUNT 3.32 10*6/uL (4.10-5.10); RED CELL DISTRI WIDTH 17.5 % (0-14.5); WHITE BLOOD COUNT 3.2 10*3/uL (4.8-10.8)
[2019-04-27 06:19] LABS: BUN 17 mg/dl (7-24); CHLORIDE 112 mmol/L (98-107); CREATININE 1.06 mg/dL (0.55-1.02); POTASSIUM 3.9 mmol/L (3.5-5.1); SODIUM 142 mmol/L (136-145)
[2019-04-27 08:34] VITALS: BP 131/49
[2019-04-27 12:07] VITALS: BP 116/54
[2019-04-27 16:13] VITALS: BP 120/44
[2019-04-27 20:00] VITALS: BP 129/43
[2019-04-28] VITALS: BP 127/41
[2019-04-28 08:30] VITALS: BP 126/52
[2019-04-28 12:00] VITALS: BP 150/68
[2019-04-28 16:00] VITALS: BP 152/54
[2019-04-28 20:00] VITALS: BP 131/52
[2019-04-29] VITALS: BP 154/73
[2019-04-29 00:37] LABS: BASO % 0.9 % (0.0-1.0); EOS # 0.1 10*3/uL (0.0-0.4); EOS % 1.7 % (1.0-4.0); HEMATOCRIT 28.8 % (37.0-47.0); HEMOGLOBIN 8.9 g/dl (12.0-16.0); LYMPH # 0.7 10*3/uL (1.3-4.4); MEAN CORPUSCULAR HGB 27.5 pg (27.0-31.0); MEAN CORPUSCULAR HGB CONC 30.9 g/dl (33.0-37.0); MEAN PLATELET VOLUME 12.9 fl (9.6-12.3); MONO # 0.3 10*3/uL (0.1-1.0); MONO % 9.7 % (3.0-9.0); NEUT # 2.4 10*3/uL (2.3-7.9); NEUT % 67.8 % (47.0-73.0); PLATELET COUNT AUTOMATED 102 10*3/uL (130-400); RED BLOOD COUNT 3.24 10*6/uL (4.10-5.10); RED CELL DISTRI WIDTH 17.4 % (0-14.5); WHITE BLOOD COUNT 3.5 10*3/uL (4.8-10.8)
[2019-04-29 00:38] LABS: MEAN CELL VOLUME 88.9 fl (81.0-99.0)
[2019-04-29 06:21] LABS: CREATININE 1.12 mg/dL (0.55-1.02); POTASSIUM 3.8 mmol/L (3.5-5.1)
[2019-04-29 06:33] LABS: BASO % 0.6 % (0.0-1.0); EOS # 0.1 10*3/uL (0.0-0.4); EOS % 1.7 % (1.0-4.0); HEMATOCRIT 28.9 % (37.0-47.0); HEMOGLOBIN 8.9 g/dl (12.0-16.0); LYMPH # 0.9 10*3/uL (1.3-4.4); MEAN CELL VOLUME 89.8 fl (81.0-99.0); MEAN CORPUSCULAR HGB 27.6 pg (27.0-31.0); MEAN CORPUSCULAR HGB CONC 30.8 g/dl (33.0-37.0); MEAN PLATELET VOLUME 13.1 fl (9.6-12.3); MONO # 0.3 10*3/uL (0.1-1.0); MONO % 9.6 % (3.0-9.0); NEUT # 2.3 10*3/uL (2.3-7.9); NEUT % 63.5 % (47.0-73.0); PLATELET COUNT AUTOMATED 99 10*3/uL (130-400); RED BLOOD COUNT 3.22 10*6/uL (4.10-5.10); RED CELL DISTRI WIDTH 17.6 % (0-14.5); WHITE BLOOD COUNT 3.5 10*3/uL (4.8-10.8)
[2019-04-29 12:00] VITALS: BP 119/48
[2019-04-29 13:21] VITALS: BP 144/62
[2019-04-29 16:00] VITALS: BP 120/60
[2019-04-29 20:00] VITALS: BP 119/50
[2019-04-30] VITALS: BP 104/30
[2019-04-30 06:01] LABS: BASO % 0.9 % (0.0-1.0); EOS # 0.1 10*3/uL (0.0-0.4); EOS % 2.6 % (1.0-4.0); HEMATOCRIT 28.5 % (37.0-47.0); HEMOGLOBIN 8.7 g/dl (12.0-16.0); LYMPH # 0.9 10*3/uL (1.3-4.4); LYMPH % 26.2 % (27.0-41.0); MEAN CELL VOLUME 89.3 fl (81.0-99.0); MEAN CORPUSCULAR HGB 27.3 pg (27.0-31.0); MEAN CORPUSCULAR HGB CONC 30.5 g/dl (33.0-37.0); MONO # 0.3 10*3/uL (0.1-1.0); MONO % 9.2 % (3.0-9.0); NEUT # 2.1 10*3/uL (2.3-7.9); NEUT % 60.5 % (47.0-73.0); PLATELET COUNT AUTOMATED 94 10*3/uL (130-400); RED BLOOD COUNT 3.19 10*6/uL (4.10-5.10); RED CELL DISTRI WIDTH 17.3 % (0-14.5); WHITE BLOOD COUNT 3.5 10*3/uL (4.8-10.8)
[2019-04-30 06:26] LABS: CREATININE 1.11 mg/dL (0.55-1.02)
[2019-04-30 08:00] VITALS: BP 138/57
[2019-04-30 16:00] VITALS: BP 119/45
[2019-04-30 20:00] VITALS: BP 111/61
[2019-05-01] VITALS (8 sets, daily range): BP systolic 117–152; BP diastolic 42–68
[2019-05-02] VITALS: BP 120/41
[2019-05-02 11:44] VITALS: BP 124/42
[2019-05-02 16:00] VITALS: BP 151/56
== END 2019-05-02 18:38 | disposition other institution (70) | DRG 280 ==
LOC: ED 11:25 → 4E 13:41 → EDHOLD 13:41 → 4E 13:51
PROVIDERS: Emergency Medicine; Internal Medicine Nephrology; ADMIT Internal Medicine
PROC: 0DB58ZX Excision of Esophagus, Via Natural or Artificial Opening Endoscopic, Diagnostic (ICD-10-PCS; principal; 2019-04-23)
PROC: 0DB68ZX Excision of Stomach, Via Natural or Artificial Opening Endoscopic, Diagnostic (ICD-10-PCS; principal; 2019-04-23)
PROC: 30233N1 Transfusion of Nonautologous Red Blood Cells into Peripheral Vein, Percutaneous Approach (ICD-10-PCS; 2019-04-25)
DX: I21.4 Non-ST elevation (NSTEMI) myocardial infarction (principal); I50.23 Acute on chronic systolic (congestive) heart failure; K22.11 Ulcer of esophagus with bleeding; K29.01 Acute gastritis with bleeding; I13.0 Hypertensive heart and chronic kidney disease with heart failure and stage 1 through stage 4 chronic kidney disease, or unspecified chronic kidney disease; L03.90 Cellulitis, unspecified; D61.818 Other pancytopenia; N39.0 Urinary tract infection, site not specified; N18.4 Chronic kidney disease, stage 4 (severe); E78.5 Hyperlipidemia, unspecified; E11.22 Type 2 diabetes mellitus with diabetic chronic kidney disease; I25.10 Atherosclerotic heart disease of native coronary artery without angina pectoris; E53.8 Deficiency of other specified B group vitamins; L30.4 Erythema intertrigo; I25.5 Ischemic cardiomyopathy; E11.51 Type 2 diabetes mellitus with diabetic peripheral angiopathy without gangrene; D64.9 Anemia, unspecified; R00.1 Bradycardia, unspecified; E05.90 Thyrotoxicosis, unspecified without thyrotoxic crisis or storm; E87.8 Other disorders of electrolyte and fluid balance, not elsewhere classified; E83.51 Hypocalcemia; D50.9 Iron deficiency anemia, unspecified; E03.9 Hypothyroidism, unspecified; E83.9 Disorder of mineral metabolism, unspecified; K44.9 Diaphragmatic hernia without obstruction or gangrene; Z95.5 Presence of coronary angioplasty implant and graft; Z95.2 Presence of prosthetic heart valve; Z90.11 Acquired absence of right breast and nipple; Z80.0 Family history of malignant neoplasm of digestive organs; Z91.041 Radiographic dye allergy status; Z79.84 Long term (current) use of oral hypoglycemic drugs; Z79.82 Long term (current) use of aspirin; Z79.899 Other long term (current) drug therapy; Z82.49 Family history of ischemic heart disease and other diseases of the circulatory system; Z83.3 Family history of diabetes mellitus; Z85.3 Personal history of malignant neoplasm of breast; I25.2 Old myocardial infarction

== ENCOUNTER 2019-05-25 21:00 | Emergency (ER) | payer OTHER ==
[~2019-05-25] VITALS: Ht 165.1 cm; Wt 71.2 kg
--- NOTE | ~2019-05-25 | EKG ---
[place], [place] ELECTROCARDIOGRAM REPORT NAME: MATI MILIAN UNIT #: [id number] ROOM: DOCTOR: EPIPHANY DRAFT REPORT BIRTHDATE: [birth year] [facility] Test Date: 2019-05-25 Test Time: 21:33:02 Pat Name: MATI MILIAN Department: ED Room: Gender: F Hot Box Spotter: EKG.LA : 1950 Requested By: MARY ZARAGOZA Order Number: [id number] Reading MD: Naila Maya MD Measurements Intervals Nelson Rate: 67 P: 44 MD: 187 QRS: 39 QRSD: 100 T: 54 QT: 433 QTc: 457 Interpretive Statements Sinus rhythm Anterior infarct, Age undetermined Baseline wander in lead(s) V3 Compared to ECG 04/23/2019 16:52:03 Myocardial infarct finding now present Sinus bradycardia no longer present Left ventricular hypertrophy no longer present Early repolarization no longer present Electronically Signed On 05-26-2019 12:21:19 PDT by Naila Maya MD CM:EKGRPT:ELECTROCARDIOGRAM REPORT 32 [id number] MARY ZARAGOZA EPIPHANY DRAFT REPORT MARY ZARAGOZA
[~2019-05-25 21:00] MED LIST changes: +BRILINTA90 M1 PO; +IMDUR SA30 MG PO; +JANUVIA50 MG PO; +LOVASTATIN40 MG PO; +METOPROLOL TART50 M1 PO; +METOPROLOL25 MG PO; +NOVOLOG FL100 UNIT/2 SQ; +SODIUM BICARBO650 MG PO; +TRADJENTA5 M1 PO
[2019-05-25 21:03] VITALS: BP 146/71
[2019-05-25 21:51] LABS: BASO % 0.4 % (0.0-1.0); EOS # 0.1 10*3/uL (0.0-0.4); EOS % 1.9 % (1.0-4.0); HEMATOCRIT 31.5 % (37.0-47.0); HEMOGLOBIN 9.8 g/dl (12.0-16.0); LYMPH # 1.1 10*3/uL (1.3-4.4); LYMPH % 23.4 % (27.0-41.0); MEAN CELL VOLUME 86.5 fl (81.0-99.0); MEAN CORPUSCULAR HGB 26.9 pg (27.0-31.0); MEAN CORPUSCULAR HGB CONC 31.1 g/dl (33.0-37.0); MEAN PLATELET VOLUME 12.8 fl (9.6-12.3); MONO # 0.4 10*3/uL (0.1-1.0); MONO % 8.2 % (3.0-9.0); NEUT % 65.5 % (47.0-73.0); PLATELET COUNT AUTOMATED 165 10*3/uL (130-400); RED BLOOD COUNT 3.64 10*6/uL (4.10-5.10); RED CELL DISTRI WIDTH 17.9 % (0-14.5); WHITE BLOOD COUNT 4.6 10*3/uL (4.8-10.8)
[2019-05-25 22:07] LABS: ALBUMIN 3.5 gm/dl (3.1-4.5); CREATININE 1.58 mg/dL (0.55-1.02); POTASSIUM 3.8 mmol/L (3.5-5.1); TOTAL PROTEIN 7.4 gm/dL (6.4-8.2)
== END 2019-05-25 22:23 | disposition home or self-care (01) ==
LOC: ED 21:00
PROVIDERS: Nurse Practitioner Family
DX: R79.89 Other specified abnormal findings of blood chemistry (principal); I25.10 Atherosclerotic heart disease of native coronary artery without angina pectoris; E78.5 Hyperlipidemia, unspecified; E05.90 Thyrotoxicosis, unspecified without thyrotoxic crisis or storm; I25.2 Old myocardial infarction; I13.0 Hypertensive heart and chronic kidney disease with heart failure and stage 1 through stage 4 chronic kidney disease, or unspecified chronic kidney disease; E11.22 Type 2 diabetes mellitus with diabetic chronic kidney disease; N18.3 Chronic kidney disease, stage 3 (moderate); I50.9 Heart failure, unspecified; Z98.890 Other specified postprocedural states; Z90.89 Acquired absence of other organs; Z79.82 Long term (current) use of aspirin; Z79.899 Other long term (current) drug therapy; Z91.041 Radiographic dye allergy status

== ENCOUNTER → 2019-06-07 | Outpatient (CLI) | payer OTHER ==
[~2019-06-07] MED LIST changes: +MAGNESIUM400 M1 PO
[2019-06-07 11:02] LABS: ALBUMIN 3.4 gm/dl (3.1-4.5); CREATININE 1.49 mg/dL (0.55-1.02); POTASSIUM 3.8 mmol/L (3.5-5.1); TOTAL PROTEIN 7.3 gm/dL (6.4-8.2)
[2019-06-07 11:27] LABS: BASO % 0.6 % (0.0-1.0); EOS # 0.2 10*3/uL (0.0-0.4); EOS % 2.5 % (1.0-4.0); HEMATOCRIT 31.9 % (37.0-47.0); HEMOGLOBIN 9.5 g/dl (12.0-16.0); LYMPH # 1.3 10*3/uL (1.3-4.4); LYMPH % 20.3 % (27.0-41.0); MEAN CELL VOLUME 90.1 fl (81.0-99.0); MEAN CORPUSCULAR HGB 26.8 pg (27.0-31.0); MEAN CORPUSCULAR HGB CONC 29.8 g/dl (33.0-37.0); MEAN PLATELET VOLUME 13.1 fl (9.6-12.3); MONO # 0.4 10*3/uL (0.1-1.0); MONO % 6.4 % (3.0-9.0); NEUT # 4.5 10*3/uL (2.3-7.9); NEUT % 69.9 % (47.0-73.0); PLATELET COUNT AUTOMATED 129 10*3/uL (130-400); RED BLOOD COUNT 3.54 10*6/uL (4.10-5.10); RED CELL DISTRI WIDTH 17.9 % (0-14.5); RETICULOCYTE % 1.74 % (0.50-2.50); WHITE BLOOD COUNT 6.5 10*3/uL (4.8-10.8)
[2019-06-07 11:52] LABS: FERRITIN 571.4 ng/mL (10.0-291.0)
[2019-06-08 06:06] LABS: TOTAL PROTEIN, SERUM 6.5 g/dL (6.0-8.5)
[2019-06-08 19:09] LABS: FREE LAMBDA LIGHT CHAINS 32.9 mg/L (5.7-26.3); KAPPA/LAMBDA RATIO 1.85 (0.26-1.65)
[2019-06-10 13:08] LABS: ALBUMIN 3.3 g/dL (2.9-4.4); ALPHA-1-GLOBULIN 0.4 g/dL (0.0-0.4); BETA GLOBULIN 0.7 g/dL (0.7-1.3); GLOBULIN, TOTAL 3.2 g/dL (2.2-3.9); M-SPIKE Not Observed g/dL (Not Observed)
== END | disposition home or self-care (01) ==
LOC: LAB 09:56
PROVIDERS: Physician Assistant
DX: C50.911 Malignant neoplasm of unspecified site of right female breast (principal); D47.2 Monoclonal gammopathy; D47.9 Neoplasm of uncertain behavior of lymphoid, hematopoietic and related tissue, unspecified; E11.9 Type 2 diabetes mellitus without complications; N28.9 Disorder of kidney and ureter, unspecified; I25.10 Atherosclerotic heart disease of native coronary artery without angina pectoris; I10 Essential (primary) hypertension; E53.8 Deficiency of other specified B group vitamins

== ENCOUNTER → 2019-06-12 | Outpatient (CLI) | payer OTHER ==
[~2019-06-12] MED LIST changes: -MAGNESIUM400 M1 PO
== END | disposition home or self-care (01) ==
LOC: CARD 05-22 09:30
DX: I25.5 Ischemic cardiomyopathy (principal)

== ENCOUNTER 2019-08-12 07:15 | Inpatient (IN) | payer OTHER ==
[2019-08-12] VITALS (7 sets, daily range): BP systolic 100–145; BP diastolic 50–60
[~2019-08-12] VITALS: Ht 165.1 cm; Wt 76.3 kg
[2019-08-12 07:33] LABS: BASO % 0.4 % (0.0-1.0); EOS % 0.4 % (1.0-4.0); HEMOGLOBIN 7.9 g/dl (12.0-16.0); LYMPH # 0.7 10*3/uL (1.3-4.4); LYMPH % 13.4 % (27.0-41.0); MEAN CELL VOLUME 90.6 fl (81.0-99.0); MEAN CORPUSCULAR HGB 27.5 pg (27.0-31.0); MEAN CORPUSCULAR HGB CONC 30.4 g/dl (33.0-37.0); MEAN PLATELET VOLUME 12.2 fl (9.6-12.3); MONO # 0.2 10*3/uL (0.1-1.0); MONO % 4.2 % (3.0-9.0); NEUT % 80.6 % (47.0-73.0); PLATELET COUNT AUTOMATED 128 10*3/uL (130-400); RED BLOOD COUNT 2.87 10*6/uL (4.10-5.10); RED CELL DISTRI WIDTH 17.6 % (0-14.5)
[2019-08-12 07:50] LABS: ALBUMIN 3.3 gm/dl (3.1-4.5); ALKALINE PHOSPHATASE 71 U/L (45-117); BUN 23 mg/dl (7-24); CHLORIDE 108 mmol/L (98-107); POTASSIUM 4.4 mmol/L (3.5-5.1); SGOT/AST 29 IU/L (3-35); SGPT/ALT 24 U/L (12-78); SODIUM 137 mmol/L (136-145); TOTAL PROTEIN 7.6 gm/dL (6.4-8.2)
[2019-08-12 07:52] LABS: TROPONIN I < 0.015 ng/ml (<0.045)
[2019-08-12 08:00] LABS: ACT PARTIAL THROMBO TIME 25.4 SECONDS (20.0-32.1)
--- NOTE | 2019-08-12 08:23 | NUR ---
PT AMBULATING TO BATHROOM WITH ASSIST, GAIT STEADY AT THIS TIME.
--- NOTE | 2019-08-12 09:45 | NUR ---
A 69, admitted to , under the services of BRENT Leo MD with a diagnosis of ACUTE HEART FAILURE. Chief complaint is CHEST HEAVINESS . Patient arrived via from ER. Monitor applied. Initial assessment completed. Vital signs taken and recorded. BRENT LEO MD notified of admission to the unit. Orders received. See assessment for past medical history, medications and allergies. Patient and/or family oriented to unit. [address] visitation policy reviewed. Clothing/patient valuable form completed. ANTHONY MORROW R
[2019-08-12] MEDS ORDERED: MAGNESIUM400 M1 PO (09:54)
[2019-08-12] MEDS ORDERED: NOVOLOG FL100 UNIT/2 SQ (09:57)
--- NOTE | 2019-08-12 09:57 | NUR ---
MED REC UPDATED WITH LIST PROVIDED BY PT.
--- NOTE | 2019-08-12 10:28 | NUR ---
CALLED DR. CHIU RESIDENT AWARE PT NEEDS ORDERS AND MEDICATIONS ARE UPDATED. MADE AWARE PT HAS WOUND AND NEEDS ORDERS.
--- NOTE | 2019-08-12 16:35 | NUR ---
Notifed Dr. Garcia that patient has dayna blood during urination. Physician to follow up at bedside.
--- NOTE | 2019-08-12 17:12 | NUR ---
Tried to call Dr. Gorman for consult but [employer]odex would not load.
[2019-08-12 17:16] LABS: HEMATOCRIT 27.7 % (37.0-47.0); HEMOGLOBIN 8.6 g/dl (12.0-16.0)
[2019-08-12 17:27] LABS: BILIRUBIN NEGATIVE (NEGATIVE); BLOOD 3+ (NEGATIVE); CLARITY CLOUDY (CLEAR); COLOR YELLOW (YELLOW); GLUCOSE NEGATIVE (NEGATIVE); KETONE NEGATIVE (NEGATIVE); LEUKO ESTERASE 2+ (NEGATIVE); NITRITE NEGATIVE (NEGATIVE); UROBILINOGEN 0.2 E.U./dl (0.2-1.0)
[2019-08-12 17:34] LABS: RBC TNTC rbc/hpf (0-2); WBC 0-2 wbc/hpf (0-5)
[2019-08-12 17:35] LABS: BACTERIA 2+; EPITHELIAL CELLS 0-2; URINE CHLORIDE, RANDOM 150 mmol/L
[2019-08-12 17:36] LABS: URINE CREATININE RANDOM < 13.00 mg/dL
--- NOTE | 2019-08-12 21:10 | NUR ---
24 HOUR CHART CHECK COMPLETE.
[2019-08-13] VITALS: BP 124/64
--- NOTE | 2019-08-13 06:35 | NUR ---
MATI MILIAN [id number] Please refer to the physician's history and physical for past medical history, comorbid conditions, and allergies. Diagnosis: ACUTE HEART FAILURE Rojelio Score: 20,LOW OR NO RISK WOUND DESCRIPTIONS: Wound Number: 1 Location of the wound: right plantar aspect of foot Type of wound: unstageable Thickness: Full Size: 0.7cm x 1.2cm x 0.3cm Tunneling: none Undermining: none Sinus Tract: none Presence of Exudate: Serosanguineous Amount: Light Color: Red, Yellow Odor: Foul Periwound Skin Appearance: hyperkeratotic Wound edges: approximated Pain (associated with wound): none at time of assessment How does patient state this happened? pt stated this areas open and closes frequently she stated it last opened a week ago Surface the patient is resting on: Isoflex SKIN PREVENTION RECOMMENDATION: 1. Pressure redistribution support surface as appropriate 2. Elevate heels 3. Remove boots/TEDS every shift and reapply 4. Head of bed 30 degrees as tolerated 5. Assess nutrition and hydration 6. Manage moisture 7. Avoid the use of containment devices while in bed 8. Use absorptive products on surfaces limit layers of linens on bed 9. Turn and reposition every 1-2 hours in bed and every 1 hour in chair as tolerated 10. Weight shifts every 15 minutes while up in chair 11. Offloading with pillows or device to keep heels elevated off bed 12. Monitor skin at least every shift 13. Inspect under medical devices twice a day WOUND TREATMENT RECOMMENDATIONS: Arterial studies to bilateral lower extremities due to non-healing wound Imaging stuides to right plantar aspect of foot due to non-healing wound. Consult with podiatry for possible debridement is studies allow. Cleanse right plantar aspect of foot with nss and apply sureprep around the wound therahoney to wound bed and cover with optifoam gentle. Heel raiser pro boots to bilateral feet. Patient stated she will continue to follow up with Dr. Akhtar out [facility] who did her toe amputation several years ago.
[2019-08-13 06:57] LABS: BASO % 0.6 % (0.0-1.0); EOS % 0.9 % (1.0-4.0); HEMOGLOBIN 8.4 g/dl (12.0-16.0); LYMPH # 0.8 10*3/uL (1.3-4.4); LYMPH % 18.1 % (27.0-41.0); MEAN PLATELET VOLUME 12.5 fl (9.6-12.3); MONO # 0.3 10*3/uL (0.1-1.0); MONO % 5.4 % (3.0-9.0); NEUT # 3.4 10*3/uL (2.3-7.9); NEUT % 73.9 % (47.0-73.0); PLATELET COUNT AUTOMATED 137 10*3/uL (130-400); RED BLOOD COUNT 3.11 10*6/uL (4.10-5.10); RED CELL DISTRI WIDTH 17.4 % (0-14.5); WHITE BLOOD COUNT 4.7 10*3/uL (4.8-10.8)
[2019-08-13 07:02] LABS: ALBUMIN 3.3 gm/dl (3.1-4.5); CREATININE 1.79 mg/dL (0.55-1.02); PHOSPHOROUS 4.7 mg/dL (2.5-4.9); POTASSIUM 4.1 mmol/L (3.5-5.1); TOTAL PROTEIN 7.7 gm/dL (6.4-8.2)
[2019-08-13 07:11] LABS: THYROID STIM HORMONE (HS) 3.84 uIU/ml (0.358-4.75)
[2019-08-13 08:01] VITALS: BP 122/76
--- NOTE | 2019-08-13 08:10 | NUR ---
PHYSICAL THERAPY Screen received pleas consult PT if pt has a decline in functional status, thank you Rebecca Basurto PT
--- NOTE | 2019-08-13 08:48 | NUR ---
Dr. Steele notified of wound care recommendations.
--- NOTE | 2019-08-13 10:30 | NUR ---
Software Team Leader in to talk to patient. Patient states lives at home alone with her family checking in on her. There are 0 steps in the home. She has a wheelchair ramp. Physician: Dr. Quincy Waterman Pharmacy: [facility] Home health services: [facility] Patient's level of ADLs: INDEPENDENT Patient has working utilities: yes DME: walker, cane but doesn't have to use Follow-up physician's appointment after d/c: she prefers to make her own follow up appt after discharge Does patient want to access PORTAL?: no Discharge plan discussed with patient. She lives at home alone with her family checking in on her, She is independent in her ADLs and ambulation. Discussed home health care services and she denies any home needs. She states she has a walker and cane at home but doesn't have to use them. When medically stable she will be discharged to home. She will have transportation on discharge just unsure of who at this time. NEAL NARAYANAN
[2019-08-13 12:00] VITALS: BP 105/56
--- NOTE | 2019-08-13 15:53 | NUR ---
PRE VOID BLADDER SCAN 194ML.
--- NOTE | 2019-08-13 15:59 | NUR ---
Nursing screen received. Please refer to Occupational Therapy if a decline in ADLs or functional mobility. Thank you. Rubio Crocker OTR/L
[2019-08-13 16:00] VITALS: BP 110/59
--- NOTE | 2019-08-13 16:00 | NUR ---
Patient voided 300ml clear yellow urine no signs of dayna blood no c/o pain.
--- NOTE | 2019-08-13 16:05 | NUR ---
Post void residual 0ml urine.
[2019-08-13 20:00] VITALS: BP 109/57
[2019-08-14] VITALS: BP 134/65
--- NOTE | 2019-08-14 00:23 | NUR ---
PT PLACED BACK ON CAMPUS RECRUITING COORDINATOR LEADS HAD COME OFF. PT DENIES ANY NEEDS. WILL MONITOR. CALL LIGHT IN REACH.
[2019-08-14 06:14] LABS: BASO % 0.4 % (0.0-1.0); EOS % 0.7 % (1.0-4.0); HEMATOCRIT 26.9 % (37.0-47.0); HEMOGLOBIN 8.5 g/dl (12.0-16.0); LYMPH # 0.7 10*3/uL (1.3-4.4); LYMPH % 13.1 % (27.0-41.0); MEAN CELL VOLUME 88.8 fl (81.0-99.0); MEAN CORPUSCULAR HGB 28.1 pg (27.0-31.0); MEAN CORPUSCULAR HGB CONC 31.6 g/dl (33.0-37.0); MEAN PLATELET VOLUME 12.4 fl (9.6-12.3); MONO # 0.3 10*3/uL (0.1-1.0); MONO % 5.6 % (3.0-9.0); NEUT # 4.2 10*3/uL (2.3-7.9); NEUT % 79.1 % (47.0-73.0); PLATELET COUNT AUTOMATED 140 10*3/uL (130-400); RED BLOOD COUNT 3.03 10*6/uL (4.10-5.10); RED CELL DISTRI WIDTH 17.2 % (0-14.5); WHITE BLOOD COUNT 5.4 10*3/uL (4.8-10.8)
[2019-08-14 06:44] LABS: CREATININE 1.89 mg/dL (0.55-1.02)
[2019-08-14 07:35] VITALS: BP 110/66
--- NOTE | 2019-08-14 07:56 | NUR ---
PATIENT RESTING COMFORTABLY IN BED, NO C/O OF PAIN AT THIS TIME. MIRNA SALINASCC
--- NOTE | 2019-08-14 09:00 | NUR ---
Public Health Director in to see patient. No new needs or request at this time. She denies any home needs. When medically stable she will be discharged to home. Cardiology consult, diuresing with oscar.
--- NOTE | 2019-08-14 09:45 | NUR ---
PHYSICIAN WAS NOTIFIED OF DR. RUTH CONSULT. RESPONSE OF NOTIFICATION WAS OK THANK YOU. TERRY GRAF
--- NOTE | 2019-08-14 10:00 | NUR ---
PT IS SITTING UP IN CHAIR, RESTING COMFORTABLY WHILE WATCHING TELEVISION, WAITING FOR LUNCH TO ARRIVE. MIRNA SALINASCC
--- NOTE | 2019-08-14 10:00 | NUR ---
NOTIFIED DR GANT PATIENT IS TAKING BOTH LOVENOX AND BRILLINTA. NO NEW ORDERS.
[2019-08-14 12:00] VITALS: BP 120/65
--- NOTE | 2019-08-14 12:00 | NUR ---
PT SITTING UP IN CHAIR WAITING FOR LUNCH. MIRNA SIMON SPNRCC
--- NOTE | 2019-08-14 13:30 | NUR ---
PT IS RESTING IN CHAIR WATCHING TELEVISION. PLEASANT AND COOPERATIVE. NO C/O PAIN. MIRNA SALINASCC
[2019-08-14 16:00] VITALS: BP 109/55
--- NOTE | 2019-08-14 19:43 | NUR ---
COM WRITER CALLED RN STATING PT HAVING RHYTHM CHANGE. STAT EKG ORDERED PER POLICY. NOTIFIED. HERE TO REVIEW EKG/CHART. NEW ORDER RECEIVED FOR STAT TROPONIN,
--- NOTE | 2019-08-14 19:50 | NUR ---
PER , GIVE BRILLINTA, ASPIRIN, AND HEPARIN ORDERED.
[2019-08-14 20:00] VITALS: BP 108/50
--- NOTE | 2019-08-14 22:16 | NUR ---
PT REFUSING INSULIN COVERAGE FOR BSG 218. STATES SHE WILL DROP THROUGHOUT THE NIGHT ON HER OWN, SO INSULIN IS NOT NEEDED. PT ALSO REFUSING HEPARIN SQ INJECTION DESPITE EDUCATION. WILL MONITOR. CALL LIGHT IN REACH.
[2019-08-15] VITALS: BP 103/54
--- NOTE | 2019-08-15 00:58 | NUR ---
PT ASLEEP IN BED. RESPIRATIONS EASY. NO S/S OF DISTRESS NOTED. WILL MONITOR. CALL LIGHT IN REACH.
--- NOTE | 2019-08-15 04:30 | NUR ---
PT ASLEEP IN BED. NO S/S OF DISTRESS NOTED. WILL MONITOR. CALL LIGHT IN REACH.
--- NOTE | 2019-08-15 05:59 | NUR ---
BSG 159. PT DOES NOT WANT INSULIN COVERAGE AT THIS TIME.
[2019-08-15 06:42] LABS: BASO % 0.3 % (0.0-1.0); EOS % 0.3 % (1.0-4.0); HEMATOCRIT 26.6 % (37.0-47.0); HEMOGLOBIN 8.4 g/dl (12.0-16.0); LYMPH % 16.4 % (27.0-41.0); MEAN CELL VOLUME 87.8 fl (81.0-99.0); MEAN CORPUSCULAR HGB 27.7 pg (27.0-31.0); MEAN CORPUSCULAR HGB CONC 31.6 g/dl (33.0-37.0); MEAN PLATELET VOLUME 11.7 fl (9.6-12.3); MONO # 0.4 10*3/uL (0.1-1.0); MONO % 6.9 % (3.0-9.0); NEUT # 4.4 10*3/uL (2.3-7.9); NEUT % 75.2 % (47.0-73.0); PLATELET COUNT AUTOMATED 133 10*3/uL (130-400); RED BLOOD COUNT 3.03 10*6/uL (4.10-5.10); RED CELL DISTRI WIDTH 17.2 % (0-14.5); WHITE BLOOD COUNT 5.8 10*3/uL (4.8-10.8)
[2019-08-15 07:03] LABS: ALBUMIN 3.4 gm/dl (3.1-4.5); CREATININE 1.97 mg/dL (0.55-1.02); POTASSIUM 3.9 mmol/L (3.5-5.1); TOTAL PROTEIN 7.9 gm/dL (6.4-8.2)
[2019-08-15 08:00] VITALS: BP 102/62
--- NOTE | 2019-08-15 09:00 | NUR ---
Dining Car Steward in to see patient. No new needs or request at this time. She denies any home needs. When medically stable she will be discharged to home. Diuresing with po lasix, receiving IV Fe x 3 doses, VQ -, Chest CT -, podiatry consult for soft tissue disruption in right foot, possible bedside debridement today.
--- NOTE | 2019-08-15 11:40 | NUR ---
REPORT CALLED TO ED AT [facility]. PT TO LEAVE HERE AT 1300 VIA DAUGHTER.
[2019-08-15 12:00] VITALS: BP 114/71
[2019-08-15 16:00] VITALS: BP 122/72
--- NOTE | 2019-08-15 17:48 | NUR ---
DR AHMADI NOTIFIED TROP 0.07
[2019-08-15 20:00] VITALS: BP 112/69
[2019-08-16] VITALS: BP 115/70
[2019-08-16 08:01] LABS: BASO % 0.4 % (0.0-1.0); EOS % 0.2 % (1.0-4.0); HEMATOCRIT 26.8 % (37.0-47.0); HEMOGLOBIN 8.4 g/dl (12.0-16.0); LYMPH # 0.9 10*3/uL (1.3-4.4); LYMPH % 15.5 % (27.0-41.0); MEAN CELL VOLUME 88.7 fl (81.0-99.0); MEAN CORPUSCULAR HGB 27.8 pg (27.0-31.0); MEAN CORPUSCULAR HGB CONC 31.3 g/dl (33.0-37.0); MEAN PLATELET VOLUME 12.4 fl (9.6-12.3); MONO # 0.3 10*3/uL (0.1-1.0); MONO % 5.9 % (3.0-9.0); NEUT # 4.3 10*3/uL (2.3-7.9); NEUT % 77.3 % (47.0-73.0); PLATELET COUNT AUTOMATED 136 10*3/uL (130-400); RED BLOOD COUNT 3.02 10*6/uL (4.10-5.10); WHITE BLOOD COUNT 5.6 10*3/uL (4.8-10.8)
[2019-08-16 08:06] LABS: ALBUMIN 3.4 gm/dl (3.1-4.5); POTASSIUM 4.1 mmol/L (3.5-5.1)
[2019-08-16 08:12] LABS: TOTAL PROTEIN 8.2 gm/dL (6.4-8.2)
--- NOTE | 2019-08-16 09:00 | NUR ---
Coating Mixer in to see patient. No new needs or request at this time. Bedside debridement yesterday, po oscar, cardiology on consult. When medically stable she will be discharged to home.
[2019-08-16 12:00] VITALS: BP 116/68
--- NOTE | 2019-08-16 12:52 | NUR ---
INFORMED SIGNED CONSENT OBTAINED FOR LEXISCAN STRESS TEST WITH DR CHIU. RESTING EKG NSR HR 91 BP 106/64. PULSE OX 100% LUNGS CLEAR. PT COMPLETED ONE MINUTE OF A LEXISCAN PROTOCOL WITH PT RECEIVING LEXISCAN 0.4MG IV OVER 10 SECONDS. RARE PVC NOTED. NO ST CHANGES SEEN. PT C/O SOB WITH INJECTION. LAST RECOVERY HR OF 101 BP 110/50. PT IN STABLE CONDITION, AWAITING NUCLEAR IMAGES.
[2019-08-16 16:00] VITALS: BP 138/66
[2019-08-16 20:00] VITALS: BP 116/69
--- NOTE | 2019-08-16 20:10 | NUR ---
AAOX3 SITTING UP IN CHAIR IN ROOM. HEP LOCK INTACT TO LEFT ARM; SITE ASYMPTOMATIC. LUNGS CLEAR AT THIS TIME WITH NO COUGH NOTED. DRESSING INTACT TO RIGHT FOOT. PT. VOICES NO C/O AT THIS TIME; NO DISTRESS NOTED. CALL LIGHT WITHIN REACH.
--- NOTE | 2019-08-16 22:15 | NUR ---
BLOOD SUGAR 128; NO COVERAGE REQUIRED.
[2019-08-17] VITALS: BP 114/56
--- NOTE | 2019-08-17 04:00 | NUR ---
RESTING IN BED WITH EYES CLOSED. CALL LIGHT WITHIN REACH. BED ALARM ON
[2019-08-17 07:49] LABS: BASO % 0.6 % (0.0-1.0); EOS % 0.4 % (1.0-4.0); HEMOGLOBIN 8.3 g/dl (12.0-16.0); LYMPH # 0.7 10*3/uL (1.3-4.4); LYMPH % 13.2 % (27.0-41.0); MEAN CELL VOLUME 89.3 fl (81.0-99.0); MEAN CORPUSCULAR HGB 28.5 pg (27.0-31.0); MEAN CORPUSCULAR HGB CONC 31.9 g/dl (33.0-37.0); MEAN PLATELET VOLUME 12.3 fl (9.6-12.3); MONO # 0.4 10*3/uL (0.1-1.0); MONO % 7.3 % (3.0-9.0); NEUT # 3.9 10*3/uL (2.3-7.9); NEUT % 77.3 % (47.0-73.0); PLATELET COUNT AUTOMATED 120 10*3/uL (130-400); RED BLOOD COUNT 2.91 10*6/uL (4.10-5.10); RED CELL DISTRI WIDTH 17.1 % (0-14.5); WHITE BLOOD COUNT 5.1 10*3/uL (4.8-10.8)
[2019-08-17 08:00] VITALS: BP 122/64
[2019-08-17 08:16] LABS: ALBUMIN 3.3 gm/dl (3.1-4.5); CREATININE 1.87 mg/dL (0.55-1.02); POTASSIUM 3.9 mmol/L (3.5-5.1); TOTAL PROTEIN 7.9 gm/dL (6.4-8.2)
--- NOTE | 2019-08-17 10:36 | NUR ---
DR ELIZONDO CALLED PER DR ANGELES REQUEST TO NOTIFY HIM OF STRESS TEST RESULTS. DR MON STATED THAT HE WOULD BE IN IN ABOUT AN HOUR AND WOULD LOOK AT HER STRESS TEST RESULTS THEN.
[2019-08-17 12:00] VITALS: BP 111/56
[2019-08-17 16:00] VITALS: BP 120/55
[2019-08-17 20:00] VITALS: BP 116/62
--- NOTE | 2019-08-17 23:30 | NUR ---
24 HOUR CHART CHECK COMPLETE
[2019-08-18] VITALS: BP 96/52
[2019-08-18 08:00] VITALS: BP 84/48
--- NOTE | 2019-08-18 08:15 | NUR ---
NOTIFIED DR BENEDICT THAT PT MANUAL BP 84/48.PT SYMPTOMATIC AT THIS TIME WITH C/O DIZZINESS AND JUST "BEING TIRED". OTHERWISE SHE STATES SHE FEELS FINE.ORDERS FOR BP MEDS TO BE HELD THIS AM AND MED CHANGES MADE PER DR BENEDICT'S ORDER.
[2019-08-18 12:00] VITALS: BP 102/46
[2019-08-18 16:00] VITALS: BP 109/49
[2019-08-18 20:00] VITALS: BP 101/52
--- NOTE | 2019-08-18 20:20 | NUR ---
PATIENT ASSESSMENT COMPLETED AT THIS TIME WITHOUT INCIDENT. PATIENT DENIES PAIN, CHEST PAIN/PRESSURE. OR SHORTNESS OF BREATH AT THIS TIME. PATIENT RESTING IN BED IN A POSITION OF COMFORT, RESPIRATIONS EASY AND NON-LABORED, A&O X3. CALL LIGHT WITHIN REACH, WILL CONTINUE TO MONITOR.
--- NOTE | 2019-08-18 22:25 | NUR ---
CALLED AND MADE AWARE OF PATIENT MANUAL BLOOD PRESSURE 92/60. ORDERS RECEIVED TO DISCONTINUE IMDUR AND LISINOPRIL AT THIS TIME, SEE EMAR.
[2019-08-19] VITALS (8 sets, daily range): BP systolic 82–123; BP diastolic 38–54
--- NOTE | 2019-08-19 00:15 | NUR ---
DR. BENEDICT CALLED AND MADE AWARE OF PATIENT MANUAL BLOOD PRESSURE 86/42 A THIS TIME, ORDERS RECEIVED FOR FLUID BOLUS, SEE EMAR.
[2019-08-19 00:28] LABS: BILIRUBIN NEGATIVE (NEGATIVE); BLOOD 3+ (NEGATIVE); CLARITY SL CLOUDY (CLEAR); COLOR YELLOW (YELLOW); GLUCOSE NEGATIVE (NEGATIVE); KETONE NEGATIVE (NEGATIVE); LEUKO ESTERASE 2+ (NEGATIVE); NITRITE NEGATIVE (NEGATIVE); PH 5.5 (5.0-9.0); UROBILINOGEN 0.2 E.U./dl (0.2-1.0)
[2019-08-19 00:34] LABS: RBC TNTC rbc/hpf (0-2); WBC TNTC wbc/hpf (0-5)
[2019-08-19 00:35] LABS: BACTERIA 2+
--- NOTE | 2019-08-19 02:12 | NUR ---
PATIENT BLOOD PRESSURE AFTER A 250ML BOLUS 98/50, PATIENT DENIES ANY DIZZINESS ONLY COMPLAINS OF FATIGUE AT THIS TIME.
[2019-08-19 06:26] LABS: CREATININE 2.46 mg/dL (0.55-1.02); POTASSIUM 3.4 mmol/L (3.5-5.1)
--- NOTE | 2019-08-19 07:54 | NUR ---
PATIENT RESTING COMFORTABLY. DENIES PAIN AT THIS TIME. ANTHONY NORWOOD SPNRCC
--- NOTE | 2019-08-19 09:00 | NUR ---
Animal Feeder in to see patient. No new needs or request at this time. Discussed home health care services and she denies any home needs at this time. Discussed life vest and she states she has had one before. When medically stable she will be discharged to home.
--- NOTE | 2019-08-19 09:09 | NUR ---
PT STATES THAT SHE FEELS DIZZY AND JUST "NOT GOOD", BP 90/60, RESTING QUIETLY IN BED ANTHONY NORWOOD SPKENDALCC
--- NOTE | 2019-08-19 12:13 | NUR ---
PATIENT WAITING ON LUNCH. RESTING COMFORTABLY. ANTHONY NORWOOD SPNRCC
--- NOTE | 2019-08-19 13:14 | NUR ---
PT REFUSED BATH. ANTHONY NORWOOD SPNRCC
--- NOTE | 2019-08-19 16:30 | NUR ---
Dr. Rojas and Dr. Mchugh in to see pt. New orders received. Pt states she just doesn't feel well. States she is weak. Reports lightheadedness with movement and getting up to go to the bathroom. Instructed to ask for assistance. See assessment.
--- NOTE | 2019-08-19 19:00 | NUR ---
Pt states she feels better since bolus of 500 cc ivf. States she is still experiencing some dizziness when up but it has improved. Just assisted pt back from bathroom.
[2019-08-19 21:39] LABS: BILIRUBIN NEGATIVE (NEGATIVE); BLOOD 2+ (NEGATIVE); CLARITY SL CLOUDY (CLEAR); COLOR YELLOW (YELLOW); GLUCOSE NEGATIVE (NEGATIVE); KETONE NEGATIVE (NEGATIVE); LEUKO ESTERASE 2+ (NEGATIVE); NITRITE NEGATIVE (NEGATIVE); PH 5.5 (5.0-9.0); SPECIFIC GRAVITY <= 1.005 (1.005-1.030); UROBILINOGEN 0.2 E.U./dl (0.2-1.0)
[2019-08-19 21:43] LABS: BACTERIA 2+; EPITHELIAL CELLS 0-2; WBC TNTC wbc/hpf (0-5)
[2019-08-20] VITALS (13 sets, daily range): BP systolic 101–133; BP diastolic 47–72
--- NOTE | 2019-08-20 05:59 | NUR ---
MATI MILIAN [id number] Please refer to the physician's history and physical for past medical history, comorbid conditions, and allergies. Diagnosis: ACUTE HEART FAILURE Rojelio Score: 20,LOW OR NO RISK WOUND DESCRIPTIONS: Wound Number: 1 Location of the wound: right plantar aspect of foot Type of wound: unstageable Thickness: Full Size: 0.5cm x 0.6cm x 0.3cm Tunneling: none Undermining: none Sinus Tract: none Presence of Exudate: Serosanguineous Amount: Light Color: Red, Yellow Odor: none Periwound Skin Appearance: hyperkeratotic Wound edges: approximated Pain (associated with wound): none at time of assessment How does patient state this happened? pt stated this areas open and closes frequently she stated it last opened a week ago Surface the patient is resting on: Isoflex SKIN PREVENTION RECOMMENDATION: 1. Pressure redistribution support surface as appropriate 2. Elevate heels 3. Remove boots/TEDS every shift and reapply 4. Head of bed 30 degrees as tolerated 5. Assess nutrition and hydration 6. Manage moisture 7. Avoid the use of containment devices while in bed 8. Use absorptive products on surfaces limit layers of linens on bed 9. Turn and reposition every 1-2 hours in bed and every 1 hour in chair as tolerated 10. Weight shifts every 15 minutes while up in chair 11. Offloading with pillows or device to keep heels elevated off bed 12. Monitor skin at least every shift 13. Inspect under medical devices twice a day WOUND TREATMENT RECOMMENDATIONS: Continue dressing change per podiatry apply bactroban dry gauze dressing and wrap with kerlix daily. Patient continues to state she will follow up with Dr. Akhtar upon discharge.
[2019-08-20 06:56] LABS: BASO % 0.5 % (0.0-1.0); EOS % 0.5 % (1.0-4.0); HEMATOCRIT 23.4 % (37.0-47.0); HEMOGLOBIN 7.4 g/dl (12.0-16.0); LYMPH # 0.9 10*3/uL (1.3-4.4); LYMPH % 20.6 % (27.0-41.0); MEAN CELL VOLUME 88.6 fl (81.0-99.0); MEAN CORPUSCULAR HGB CONC 31.6 g/dl (33.0-37.0); MONO # 0.4 10*3/uL (0.1-1.0); MONO % 8.6 % (3.0-9.0); NEUT # 2.9 10*3/uL (2.3-7.9); NEUT % 68.6 % (47.0-73.0); PLATELET COUNT AUTOMATED 113 10*3/uL (130-400); RED BLOOD COUNT 2.64 10*6/uL (4.10-5.10); RED CELL DISTRI WIDTH 17.2 % (0-14.5); WHITE BLOOD COUNT 4.2 10*3/uL (4.8-10.8)
[2019-08-20 07:07] LABS: CREATININE 1.9 mg/dL (0.55-1.02); POTASSIUM 3.6 mmol/L (3.5-5.1)
--- NOTE | 2019-08-20 07:10 | NUR ---
ARRIVED ON SHIFT, INTRODUCED TO PATIENT, NO NEEDS VOICED AT THIS TIME, WHITE BOARD UPDATED. REPORT RECEIVED.
--- NOTE | 2019-08-20 09:28 | NUR ---
Shift chart check completed.
--- NOTE | 2019-08-20 10:30 | NUR ---
Pinmaker in to see patient. No new needs or request at this time. She denies any home needs. When medically stable she will be discharged to home. Awaiting life vest.
--- NOTE | 2019-08-20 13:03 | NUR ---
Spoke to Dr. Ko who gave orders to order a life vest. Spoke to Anthony at [facility]. Order needs completed with a physician signature and time. Not allowed to accept a telephone order. Spoke to Dr. Ko's office and faxed [facility] Life Vest order to be completed. Inpatient director notified.
--- NOTE | 2019-08-20 13:15 | NUR ---
Spoke to Anthony at [facility] regarding order to be completed by Dr. Ko. Faxed facesheet, echo, H&P, and Dr. Rojas's progress note to Anthony at [phone].
--- NOTE | 2019-08-20 14:27 | NUR ---
Spoke to Anthony from [employer] Life [employer]est regarding life vest order. He has not received signed form from Dr. Ko's office. He will be reaching out to Dr. Ko's office. Office number given to Anthony.
--- NOTE | 2019-08-20 14:56 | NUR ---
Spoke to Anthony from [facility]. Dr. Cordova's office computers are down and physician has left for the day. Dr. Rojas not available. Asked Dr. Waterman about completing life vest form. Dr. Waterman request to check with resident Dr. Chester. Awaiting response.
--- NOTE | 2019-08-20 15:14 | NUR ---
Spoke to Anthony from [facility], resident not able to complete form. Spoke to Dr. Waterman again and he will complete form. Faxed life vest form to his office.
--- NOTE | 2019-08-20 15:17 | NUR ---
REVIEWED AND SIGNED BLOOD CONSENT WITH PATIENT.
--- NOTE | 2019-08-20 19:10 | NUR ---
RECEIVED REPORT FROM NURSE GONZALEZ. IN TO SEE PT. PT RECEIVING BLOOD. BLOOD INCREASED TO 200 AT THIS TIME TO TRY TO ATTEMPT TO GET THE BLOOD TRANSFUSED WITHIN 4 HOURS. PTS VSS. PT HAS NO COMPLAINTS AT THIS TIME. WILL CONTINUE TO MONITOR. CALL LIGHT WITHIN REACH.
--- NOTE | 2019-08-20 19:45 | NUR ---
IN TO CHECK ON PT AT THIS TIME. PT STILL DOING OK. VSS.
--- NOTE | 2019-08-20 20:54 | NUR ---
BLOOD STOPPED AT THIS TIME. 50 CC LEFT IN BAG AT THE END OF THE 4 HOURS. 50 CC WASTED IN BIOHAZARD BAG PER POLICY.
--- NOTE | 2019-08-20 21:00 | NUR ---
PT HAS NO COMPLAINTS AT THIS TIME. RESPIRATIONS EASY AND REGULAR. VSS. WILL MONITOR. CALL LIGHT IN REACH.
[2019-08-21] VITALS: BP 111/50
--- NOTE | 2019-08-21 02:23 | NUR ---
24 HR chart check completed.
[2019-08-21 06:17] LABS: BASO % 0.6 % (0.0-1.0); EOS % 0.6 % (1.0-4.0); HEMATOCRIT 28.6 % (37.0-47.0); HEMOGLOBIN 9.3 g/dl (12.0-16.0); LYMPH % 18.9 % (27.0-41.0); MEAN CELL VOLUME 90.5 fl (81.0-99.0); MEAN CORPUSCULAR HGB 29.4 pg (27.0-31.0); MEAN CORPUSCULAR HGB CONC 32.5 g/dl (33.0-37.0); MEAN PLATELET VOLUME 12.2 fl (9.6-12.3); MONO # 0.5 10*3/uL (0.1-1.0); NEUT # 3.7 10*3/uL (2.3-7.9); NEUT % 69.4 % (47.0-73.0); PLATELET COUNT AUTOMATED 115 10*3/uL (130-400); RED BLOOD COUNT 3.16 10*6/uL (4.10-5.10); RED CELL DISTRI WIDTH 17.1 % (0-14.5); WHITE BLOOD COUNT 5.3 10*3/uL (4.8-10.8)
[2019-08-21 06:39] LABS: CREATININE 1.68 mg/dL (0.55-1.02)
[2019-08-21 08:01] VITALS: BP 110/56
--- NOTE | 2019-08-21 09:00 | NUR ---
Electronics Processing Supervisor in to see patient. She is sitting up in her bedside chair without distress noted. No new needs or request at this time. Discussed home health care services and she denies any home needs. When medically stable she will be discharged to home. Awaiting life vest. Hgb 9.3 after 1 unit of PRBCs.
--- NOTE | 2019-08-21 10:00 | NUR ---
Spoke to Anthony from [facility] regarding life vest. If order is entered by 2pm then the life vest will be delivered the following day. Spoke to Dr. Waterman's office. Life vest form faxed this morning to [facility] and office is faxing form to hospital now. Received from and given to house steward/stewardess. Dr. Waterman rounding and spoke to Anthony.
--- NOTE | 2019-08-21 11:45 | NUR ---
Spoke with regarding loss of IV access and multiple failed attempts. Per physician, keep trying.
[2019-08-21 12:00] VITALS: BP 106/55
--- NOTE | 2019-08-21 13:00 | NUR ---
Spoke with regarding patients refusal for additional attempts be made for IV site. Per physician discontinue fluids.
[2019-08-21 16:00] VITALS: BP 111/59
[2019-08-21 20:00] VITALS: BP 114/55
--- NOTE | 2019-08-21 20:10 | NUR ---
PATIENT ASSESSMENT COMPLETED AT THIS TIME, PATIENT DENIES ANY NEEDS AT THIS TIME. PATIENT STATED TO THIS RN THAT SHE DOES NOT WANT AN IV INSERTED INTO HER LEFT ARM AT THIS TIME DUE TO EARLIER IV INFILTRATING AND UNABLE TO USE RIGHT ARM DUE TO PREVIOUS MASTECTOMY. SPOKE WITH PATIENT ABOUT CODE STATUS AND IMPORTANCE OF HAVING IV ACCESS FOR EMERGENCY USE, PATIENT STILL REFUSED AND STATED "IF THAT HAPPENS GUESS IT WILL BE ADDRESSED THEN". CALL LIGHT IN REACH, WILL CONTINUE TO MONITOR.
--- NOTE | 2019-08-21 22:41 | NUR ---
SPOKE WITH PATIENT IN REFERENCE TO HER REQUEST NOT TO HAVE THE BED ALARM ON. PATIENT STATED THAT THE DOCTOR HAS TOLD HER THAT SHE IS GOING HOME TOMORROW AND THAT SHE NEEDS TO BE ABLE TO DO THINGS ON HER OWN SUCH GOING TO THE BATHROOM. PATIENT STRONGLY OBJECTED TO THE ALARM BEING TURNED ON AND AGREED THAT SHE WOULD USE THE CALL LIGHT AND WAIT FOR STAFF SO THAT WE CAN WATCH HER AND BE SURE SHE IS STEADY AND ABLE TO TRANSFER HERSELF WITHOUT INCIDENT.
--- NOTE | 2019-08-21 23:45 | NUR ---
ASSUMED CARE OF PATIENT. ASSESSMENT DONE. EXPLAINED THE IMPORTANCE OF HAVING AN IV IN PATIENTS CONDITION AND SHE CONTINUES TO REFUSE. STATES SHE'S GOING HOME TOMORROW. ALSO SPOKE WITH PATIENT ABOUT THE BED ALARM, SHE STATED SHE DOESN'T NEED IT AND DOESN'T WANT TO HEAR IT WHEN SHE WANTS TO GET UP. CALL LIGHT REMAINS IN REACH, WILL MONITOR
[2019-08-22] VITALS: BP 117/49
--- NOTE | 2019-08-22 01:37 | NUR ---
24 HR chart check completed.
[2019-08-22 06:52] LABS: CREATININE 1.43 mg/dL (0.55-1.02); POTASSIUM 4.2 mmol/L (3.5-5.1)
[2019-08-22 08:00] VITALS: BP 112/62
[2019-08-22 08:01] VITALS: BP 112/62
[2019-08-22 08:35] LABS: BASO % 0.6 % (0.0-1.0); EOS % 0.6 % (1.0-4.0); HEMATOCRIT 27.9 % (37.0-47.0); HEMOGLOBIN 8.9 g/dl (12.0-16.0); LYMPH # 0.8 10*3/uL (1.3-4.4); LYMPH % 15.5 % (27.0-41.0); MEAN CELL VOLUME 91.5 fl (81.0-99.0); MEAN CORPUSCULAR HGB 29.2 pg (27.0-31.0); MEAN CORPUSCULAR HGB CONC 31.9 g/dl (33.0-37.0); MEAN PLATELET VOLUME 12.8 fl (9.6-12.3); MONO # 0.4 10*3/uL (0.1-1.0); MONO % 7.9 % (3.0-9.0); NEUT # 3.6 10*3/uL (2.3-7.9); NEUT % 74.6 % (47.0-73.0); PLATELET COUNT AUTOMATED 102 10*3/uL (130-400); RED BLOOD COUNT 3.05 10*6/uL (4.10-5.10); RED CELL DISTRI WIDTH 17.2 % (0-14.5); WHITE BLOOD COUNT 4.8 10*3/uL (4.8-10.8)
[2019-08-22 12:00] VITALS: BP 121/53
--- NOTE | 2019-08-22 12:23 | NUR ---
Notified Dr. Busby that I spoke with Ismael from [facility] and he is expected to be at the hospital between 1400 and 1500 this afternoon.
[2019-08-22 16:00] VITALS: BP 131/61
[2019-08-22 20:00] VITALS: BP 128/46
[2019-08-23] VITALS: BP 118/51
[2019-08-23 08:00] VITALS: BP 125/61
[2019-08-23] MEDS ORDERED: CARVEDILOL3.125 MG PO (10:48)
[2019-08-23] MEDS ORDERED: ASPIRIN CHEWABL81 M1 PO (10:48)
== END 2019-08-23 13:00 | disposition home or self-care (01) | DRG 264 ==
LOC: ED 07:15 → 4E 09:14 → EDHOLD 09:14 → 4E 09:47
PROVIDERS: Emergency Medicine; Internal Medicine; ADMIT Internal Medicine
PROC: 0JBQ0ZZ Excision of Right Foot Subcutaneous Tissue and Fascia, Open Approach (ICD-10-PCS; principal; 2019-08-15)
PROC: 4A02XM4 Measurement of Cardiac Total Activity, External Approach (ICD-10-PCS; 2019-08-16)
PROC: 3E073KZ Introduction of Other Diagnostic Substance into Coronary Artery, Percutaneous Approach (ICD-10-PCS; 2019-08-16)
PROC: 30233N1 Transfusion of Nonautologous Red Blood Cells into Peripheral Vein, Percutaneous Approach (ICD-10-PCS; 2019-08-20)
DX: I13.0 Hypertensive heart and chronic kidney disease with heart failure and stage 1 through stage 4 chronic kidney disease, or unspecified chronic kidney disease (principal); I50.43 Acute on chronic combined systolic (congestive) and diastolic (congestive) heart failure; N17.9 Acute kidney failure, unspecified; N39.0 Urinary tract infection, site not specified; E87.1 Hypo-osmolality and hyponatremia; N18.3 Chronic kidney disease, stage 3 (moderate); E11.22 Type 2 diabetes mellitus with diabetic chronic kidney disease; I25.10 Atherosclerotic heart disease of native coronary artery without angina pectoris; R31.9 Hematuria, unspecified; E78.5 Hyperlipidemia, unspecified; I95.2 Hypotension due to drugs; T50.995A Adverse effect of other drugs, medicaments and biological substances, initial encounter; D72.818 Other decreased white blood cell count; D69.6 Thrombocytopenia, unspecified; E83.52 Hypercalcemia; E11.65 Type 2 diabetes mellitus with hyperglycemia; D72.810 Lymphocytopenia; I25.5 Ischemic cardiomyopathy; E87.8 Other disorders of electrolyte and fluid balance, not elsewhere classified; E11.621 Type 2 diabetes mellitus with foot ulcer; E11.51 Type 2 diabetes mellitus with diabetic peripheral angiopathy without gangrene; L97.511 Non-pressure chronic ulcer of other part of right foot limited to breakdown of skin; E11.42 Type 2 diabetes mellitus with diabetic polyneuropathy; B96.89 Other specified bacterial agents as the cause of diseases classified elsewhere; D50.9 Iron deficiency anemia, unspecified; T50.2X5A Adverse effect of carbonic-anhydrase inhibitors, benzothiadiazides and other diuretics, initial encounter; Y92.89 Other specified places as the place of occurrence of the external cause; I25.2 Old myocardial infarction; Z85.3 Personal history of malignant neoplasm of breast; Z90.11 Acquired absence of right breast and nipple; Z79.01 Long term (current) use of anticoagulants; Z95.2 Presence of prosthetic heart valve; Z89.429 Acquired absence of other toe(s), unspecified side; Z80.8 Family history of malignant neoplasm of other organs or systems; Z95.5 Presence of coronary angioplasty implant and graft; Z88.8 Allergy status to other drugs, medicaments and biological substances; Z79.899 Other long term (current) drug therapy; Z79.4 Long term (current) use of insulin; Z79.82 Long term (current) use of aspirin

== ENCOUNTER 2019-09-04 22:35 | Inpatient (IN) | payer OTHER ==
[~2019-09-04] VITALS: Ht 162.6 cm; Wt 63.8 kg
[~2019-09-04 22:35] MED LIST changes: +ASPIRIN CHEWABL81 M1 PO; +CARVEDILOL3.125 MG PO; +MAGNESIUM400 M1 PO
[2019-09-04 22:48] VITALS: BP 125/62
[2019-09-04 23:27] LABS: BASO % 0.3 % (0.0-1.0); EOS % 0.3 % (1.0-4.0); HEMATOCRIT 23.1 % (37.0-47.0); HEMOGLOBIN 7.1 g/dl (12.0-16.0); LYMPH # 0.8 10*3/uL (1.3-4.4); LYMPH % 21.9 % (27.0-41.0); MEAN CELL VOLUME 90.9 fl (81.0-99.0); MEAN CORPUSCULAR HGB CONC 30.7 g/dl (33.0-37.0); MEAN PLATELET VOLUME 11.5 fl (9.6-12.3); MONO # 0.2 10*3/uL (0.1-1.0); NEUT # 2.4 10*3/uL (2.3-7.9); NEUT % 69.3 % (47.0-73.0); PLATELET COUNT AUTOMATED 117 10*3/uL (130-400); RED BLOOD COUNT 2.54 10*6/uL (4.10-5.10); RED CELL DISTRI WIDTH 16.6 % (0-14.5); WHITE BLOOD COUNT 3.4 10*3/uL (4.8-10.8)
[2019-09-04 23:38] LABS: ACT PARTIAL THROMBO TIME 25.4 SECONDS (20.0-32.1); INTERNATIONAL NORM RATIO 1.1 (2.0-3.5)
[2019-09-04 23:44] LABS: ALBUMIN 2.9 gm/dl (3.1-4.5); CREATININE 1.59 mg/dL (0.55-1.02); POTASSIUM 3.8 mmol/L (3.5-5.1); TOTAL PROTEIN 6.9 gm/dL (6.4-8.2); TROPONIN I 0.028 ng/ml (<0.045)
[2019-09-05] VITALS (7 sets, daily range): BP systolic 110–148; BP diastolic 53–76
[2019-09-05 05:12] LABS: HEMATOCRIT 23.7 % (37.0-47.0); HEMOGLOBIN 7.4 g/dl (12.0-16.0); LYMPH # 0.3 10*3/uL (1.3-4.4); LYMPH % 8.7 % (27.0-41.0); MEAN CELL VOLUME 89.1 fl (81.0-99.0); MEAN CORPUSCULAR HGB 27.8 pg (27.0-31.0); MEAN CORPUSCULAR HGB CONC 31.2 g/dl (33.0-37.0); MEAN PLATELET VOLUME 11.6 fl (9.6-12.3); MONO # 0.1 10*3/uL (0.1-1.0); MONO % 2.6 % (3.0-9.0); NEUT # 2.7 10*3/uL (2.3-7.9); NEUT % 87.4 % (47.0-73.0); PLATELET COUNT AUTOMATED 116 10*3/uL (130-400); RED BLOOD COUNT 2.66 10*6/uL (4.10-5.10); RED CELL DISTRI WIDTH 16.6 % (0-14.5); WHITE BLOOD COUNT 3.1 10*3/uL (4.8-10.8)
[2019-09-05 05:26] LABS: CREATININE 1.47 mg/dL (0.55-1.02); POTASSIUM 4.5 mmol/L (3.5-5.1)
[2019-09-05 05:31] LABS: PHOSPHOROUS 3.8 mg/dL (2.5-4.9)
[2019-09-05 05:37] LABS: THYROID STIM HORMONE (HS) 2.88 uIU/ml (0.358-4.75)
[2019-09-05 08:42] LABS: BILIRUBIN NEGATIVE (NEGATIVE); BLOOD 2+ (NEGATIVE); CLARITY CLEAR (CLEAR); COLOR YELLOW (YELLOW); GLUCOSE NEGATIVE (NEGATIVE); KETONE NEGATIVE (NEGATIVE); LEUKO ESTERASE NEGATIVE (NEGATIVE); NITRITE NEGATIVE (NEGATIVE); PH 8.5 (5.0-9.0); UROBILINOGEN 0.2 E.U./dl (0.2-1.0)
[2019-09-05 09:28] LABS: BACTERIA TRACE
[2019-09-06] VITALS (12 sets, daily range): BP systolic 114–132; BP diastolic 54–69
[2019-09-06 07:19] LABS: HEMATOCRIT 26.9 % (37.0-47.0); HEMOGLOBIN 8.3 g/dl (12.0-16.0); MEAN CELL VOLUME 91.5 fl (81.0-99.0); MEAN CORPUSCULAR HGB 28.2 pg (27.0-31.0); MEAN CORPUSCULAR HGB CONC 30.9 g/dl (33.0-37.0); MEAN PLATELET VOLUME 11.9 fl (9.6-12.3); RED BLOOD COUNT 2.94 10*6/uL (4.10-5.10); RED CELL DISTRI WIDTH 16.4 % (0-14.5); WHITE BLOOD COUNT 5.8 10*3/uL (4.8-10.8)
[2019-09-06 07:24] LABS: PLATELET COUNT AUTOMATED 158 10*3/uL (130-400)
[2019-09-06 07:28] LABS: CREATININE 1.71 mg/dL (0.55-1.02); OVALOCYTES FEW; PLATELET SUFFICIENCY NORMAL (NORMAL); POTASSIUM 4.3 mmol/L (3.5-5.1); TOTAL CELLS COUNTED 100 #CELLS
[2019-09-06 07:29] LABS: POLYCHROMASIA SLIGHT
[2019-09-06] MEDS ORDERED: ALDARA1 EACH T (18:39)
[2019-09-06] MEDS ORDERED: BACITRAYCIN PLU28 GM T (18:41)
[2019-09-06] MEDS ORDERED: TYLENOL325 M1 PO (18:42)
[2019-09-06] MEDS ORDERED: AMARYL1 M1 PO (18:43)
[2019-09-06] MEDS ORDERED: LIPITOR80 MG PO (18:43)
[2019-09-06] MEDS ORDERED: Ipratropium Brom3 ML INH (18:44)
[2019-09-06] MEDS ORDERED: KLOR-CON M1010 ME1 PO (18:45)
[2019-09-06] MEDS ORDERED: LEVOXYL125 MCG PO (18:46)
[2019-09-06] MEDS ORDERED: LASIX40 MG PO (18:46)
[2019-09-06] MEDS ORDERED: COZAAR25 M1 PO (18:47)
[2019-09-06] MEDS ORDERED: MELATONIN3 MG PO (18:48)
[2019-09-06] MEDS ORDERED: METFORMIN HYD1000 MG PO (18:48)
[2019-09-06] MEDS ORDERED: NORVASC10 MG PO (18:49)
[2019-09-06] MEDS ORDERED: SENNA LAX8.6 M1 PO (18:50)
[2019-09-07] VITALS: BP 117/55
[2019-09-07 07:28] LABS: BASO % 0.1 % (0.0-1.0); EOS % 0.3 % (1.0-4.0); HEMATOCRIT 30.1 % (37.0-47.0); HEMOGLOBIN 9.6 g/dl (12.0-16.0); LYMPH # 0.6 10*3/uL (1.3-4.4); LYMPH % 8.7 % (27.0-41.0); MEAN CELL VOLUME 88.5 fl (81.0-99.0); MEAN CORPUSCULAR HGB 28.2 pg (27.0-31.0); MEAN CORPUSCULAR HGB CONC 31.9 g/dl (33.0-37.0); MEAN PLATELET VOLUME 11.6 fl (9.6-12.3); MONO # 0.3 10*3/uL (0.1-1.0); MONO % 3.7 % (3.0-9.0); NEUT # 6.3 10*3/uL (2.3-7.9); NEUT % 85.2 % (47.0-73.0); PLATELET COUNT AUTOMATED 137 10*3/uL (130-400); RED CELL DISTRI WIDTH 18.5 % (0-14.5); WHITE BLOOD COUNT 7.4 10*3/uL (4.8-10.8)
[2019-09-07 07:38] LABS: CREATININE 1.93 mg/dL (0.55-1.02)
[2019-09-07 08:00] VITALS: BP 118/68
[2019-09-07 12:00] VITALS: BP 123/62
[2019-09-07 16:00] VITALS: BP 118/65
[2019-09-07 20:00] VITALS: BP 78/42
[2019-09-07 22:00] VITALS: BP 100/52
[2019-09-08] VITALS: BP 104/54
[2019-09-08 02:48] LABS: BILIRUBIN NEGATIVE (NEGATIVE); BLOOD 2+ (NEGATIVE); CLARITY CLEAR (CLEAR); COLOR YELLOW (YELLOW); GLUCOSE NEGATIVE (NEGATIVE); KETONE NEGATIVE (NEGATIVE); LEUKO ESTERASE NEGATIVE (NEGATIVE); NITRITE NEGATIVE (NEGATIVE); UROBILINOGEN 0.2 E.U./dl (0.2-1.0)
[2019-09-08 07:25] LABS: CREATININE 1.84 mg/dL (0.55-1.02); POTASSIUM 4.1 mmol/L (3.5-5.1)
[2019-09-08 08:00] VITALS: BP 138/72
[2019-09-08 08:17] LABS: HEMATOCRIT 28.1 % (37.0-47.0); HEMOGLOBIN 9.1 g/dl (12.0-16.0); MEAN CELL VOLUME 88.1 fl (81.0-99.0); MEAN CORPUSCULAR HGB 28.5 pg (27.0-31.0); MEAN CORPUSCULAR HGB CONC 32.4 g/dl (33.0-37.0); MEAN PLATELET VOLUME 11.4 fl (9.6-12.3); PLATELET COUNT AUTOMATED 123 10*3/uL (130-400); RED BLOOD COUNT 3.19 10*6/uL (4.10-5.10); RED CELL DISTRI WIDTH 18.2 % (0-14.5); WHITE BLOOD COUNT 5.4 10*3/uL (4.8-10.8)
[2019-09-08 08:53] LABS: BASOPHILS 1 % (0-1); TOTAL CELLS COUNTED 100 #CELLS
[2019-09-08 08:54] LABS: PLATELET SUFFICIENCY LOW (NORMAL); SCHISTOCYTES FEW
[2019-09-08 12:00] VITALS: BP 133/57
[2019-09-08 16:00] VITALS: BP 136/62
[2019-09-08 20:00] VITALS: BP 131/70
[2019-09-09] VITALS: BP 116/47
[2019-09-09 07:30] VITALS: BP 114/64
[2019-09-09 12:08] VITALS: BP 118/66
[2019-09-09 16:00] VITALS: BP 130/60
[2019-09-10] VITALS: BP 105/41
[2019-09-10 08:00] VITALS: BP 132/62
[2019-09-10 08:06] LABS: BASO % 0.4 % (0.0-1.0); EOS # 0.1 10*3/uL (0.0-0.4); EOS % 1.1 % (1.0-4.0); HEMATOCRIT 33.2 % (37.0-47.0); HEMOGLOBIN 10.5 g/dl (12.0-16.0); LYMPH % 14.9 % (27.0-41.0); MEAN CELL VOLUME 88.8 fl (81.0-99.0); MEAN CORPUSCULAR HGB 28.1 pg (27.0-31.0); MEAN CORPUSCULAR HGB CONC 31.6 g/dl (33.0-37.0); MEAN PLATELET VOLUME 10.9 fl (9.6-12.3); MONO # 0.3 10*3/uL (0.1-1.0); MONO % 4.9 % (3.0-9.0); NEUT # 5.3 10*3/uL (2.3-7.9); NEUT % 75.7 % (47.0-73.0); PLATELET COUNT AUTOMATED 157 10*3/uL (130-400); RED BLOOD COUNT 3.74 10*6/uL (4.10-5.10); RED CELL DISTRI WIDTH 18.5 % (0-14.5)
[2019-09-10 08:21] LABS: ALBUMIN 3.5 gm/dl (3.1-4.5); CREATININE 1.66 mg/dL (0.55-1.02); PHOSPHOROUS 3.2 mg/dL (2.5-4.9); POTASSIUM 4.5 mmol/L (3.5-5.1)
[2019-09-10 12:00] VITALS: BP 138/72
[2019-09-10 16:00] VITALS: BP 120/62
[2019-09-10 20:00] VITALS: BP 123/56
[2019-09-10 23:30] VITALS: BP 78/32
[2019-09-11] VITALS (12 sets, daily range): BP systolic 88–138; BP diastolic 33–59
[2019-09-11 07:09] LABS: HEMATOCRIT 29.3 % (37.0-47.0); HEMOGLOBIN 9.2 g/dl (12.0-16.0); MEAN CELL VOLUME 90.7 fl (81.0-99.0); MEAN CORPUSCULAR HGB 28.5 pg (27.0-31.0); MEAN CORPUSCULAR HGB CONC 31.4 g/dl (33.0-37.0); MEAN PLATELET VOLUME 11.4 fl (9.6-12.3); RED BLOOD COUNT 3.23 10*6/uL (4.10-5.10); RED CELL DISTRI WIDTH 18.3 % (0-14.5); WHITE BLOOD COUNT 5.1 10*3/uL (4.8-10.8)
[2019-09-11 07:23] LABS: ALBUMIN 3.3 gm/dl (3.1-4.5); CREATININE 1.68 mg/dL (0.55-1.02); PHOSPHOROUS 3.2 mg/dL (2.5-4.9); POTASSIUM 4.5 mmol/L (3.5-5.1)
[2019-09-11 07:28] LABS: PLATELET COUNT AUTOMATED 104 10*3/uL (130-400)
[2019-09-11 09:17] LABS: BASOPHILS 1 % (0-1); PLATELET SUFFICIENCY LOW (NORMAL); TOTAL CELLS COUNTED 100 #CELLS
[2019-09-12] VITALS: BP 97/51
[2019-09-12 06:34] LABS: BASO % 0.5 % (0.0-1.0); EOS % 0.7 % (1.0-4.0); HEMATOCRIT 27.8 % (37.0-47.0); HEMOGLOBIN 8.7 g/dl (12.0-16.0); LYMPH # 1.2 10*3/uL (1.3-4.4); LYMPH % 21.8 % (27.0-41.0); MEAN CELL VOLUME 90.6 fl (81.0-99.0); MEAN CORPUSCULAR HGB 28.3 pg (27.0-31.0); MEAN CORPUSCULAR HGB CONC 31.3 g/dl (33.0-37.0); MEAN PLATELET VOLUME 11.6 fl (9.6-12.3); MONO # 0.4 10*3/uL (0.1-1.0); MONO % 7.5 % (3.0-9.0); NEUT # 3.7 10*3/uL (2.3-7.9); NEUT % 66.8 % (47.0-73.0); PLATELET COUNT AUTOMATED 99 10*3/uL (130-400); RED BLOOD COUNT 3.07 10*6/uL (4.10-5.10); RED CELL DISTRI WIDTH 18.6 % (0-14.5); WHITE BLOOD COUNT 5.6 10*3/uL (4.8-10.8)
[2019-09-12 06:57] LABS: CREATININE 1.57 mg/dL (0.55-1.02); POTASSIUM 3.9 mmol/L (3.5-5.1)
[2019-09-12] MEDS ORDERED: Carafate1 GM/10 ML PO (10:28)
[2019-09-12] MEDS ORDERED: PANTOPRAZOLE SO40 MG PO (10:28)
[2019-09-12] MEDS ORDERED: LISINOPRIL2.5 MG PO (10:28)
[2019-09-12 12:00] VITALS: BP 118/61
== END 2019-09-12 13:18 | disposition home or self-care (01) | DRG 264 ==
LOC: ED 22:35 → 4E 09-05 02:30 → EDHOLD 09-05 02:30 → 4E 09-05 02:46
PROVIDERS: Emergency Medicine; Internal Medicine; Internal Medicine Nephrology; Student in an Organized Health Care Education/Training Program; ADMIT Internal Medicine
PROC: 30233N1 Transfusion of Nonautologous Red Blood Cells into Peripheral Vein, Percutaneous Approach (ICD-10-PCS; principal; 2019-09-06)
PROC: 0JBQ0ZZ Excision of Right Foot Subcutaneous Tissue and Fascia, Open Approach (ICD-10-PCS; 2019-09-07)
PROC: 0DB68ZX Excision of Stomach, Via Natural or Artificial Opening Endoscopic, Diagnostic (ICD-10-PCS; 2019-09-10)
DX: I13.0 Hypertensive heart and chronic kidney disease with heart failure and stage 1 through stage 4 chronic kidney disease, or unspecified chronic kidney disease (principal); I50.23 Acute on chronic systolic (congestive) heart failure; N17.0 Acute kidney failure with tubular necrosis; K29.71 Gastritis, unspecified, with bleeding; E44.0 Moderate protein-calorie malnutrition; E87.1 Hypo-osmolality and hyponatremia; D61.818 Other pancytopenia; S91.301A Unspecified open wound, right foot, initial encounter; K44.9 Diaphragmatic hernia without obstruction or gangrene; N18.3 Chronic kidney disease, stage 3 (moderate); E80.6 Other disorders of bilirubin metabolism; E11.65 Type 2 diabetes mellitus with hyperglycemia; E11.22 Type 2 diabetes mellitus with diabetic chronic kidney disease; E78.5 Hyperlipidemia, unspecified; I25.10 Atherosclerotic heart disease of native coronary artery without angina pectoris; E53.8 Deficiency of other specified B group vitamins; E61.1 Iron deficiency; I25.5 Ischemic cardiomyopathy; E11.51 Type 2 diabetes mellitus with diabetic peripheral angiopathy without gangrene; R31.9 Hematuria, unspecified; X58.XXXA Exposure to other specified factors, initial encounter; D64.9 Anemia, unspecified; T39.015A Adverse effect of aspirin, initial encounter; Y93.89 Activity, other specified; Z90.11 Acquired absence of right breast and nipple; Z79.01 Long term (current) use of anticoagulants; Z95.2 Presence of prosthetic heart valve; Z89.429 Acquired absence of other toe(s), unspecified side; Z80.0 Family history of malignant neoplasm of digestive organs; Z79.899 Other long term (current) drug therapy; Z79.82 Long term (current) use of aspirin; Y92.89 Other specified places as the place of occurrence of the external cause

== ENCOUNTER → 2019-09-17 | Outpatient (CLI) | payer OTHER ==
[~2019-09-17] MED LIST changes: +ALDARA1 EACH T; +AMARYL1 M1 PO; +BACITRAYCIN PLU28 GM T; +COZAAR25 M1 PO; +Carafate1 GM/10 ML PO; +Ipratropium Brom3 ML INH; +KLOR-CON M1010 ME1 PO; +LASIX40 MG PO; +LEVOXYL125 MCG PO; +LIPITOR80 MG PO; +LISINOPRIL2.5 MG PO; +MELATONIN3 MG PO; +METFORMIN HYD1000 MG PO; +NORVASC10 MG PO; +PANTOPRAZOLE SO40 MG PO; +SENNA LAX8.6 M1 PO; +TYLENOL325 M1 PO
[2019-09-17 16:31] LABS: HEMATOCRIT 27.9 % (37.0-47.0); HEMOGLOBIN 8.7 g/dl (12.0-16.0); MEAN CELL VOLUME 89.7 fl (81.0-99.0); MEAN CORPUSCULAR HGB CONC 31.2 g/dl (33.0-37.0); MEAN PLATELET VOLUME 12.1 fl (9.6-12.3); RED BLOOD COUNT 3.11 10*6/uL (4.10-5.10); RED CELL DISTRI WIDTH 18.5 % (0-14.5); WHITE BLOOD COUNT 6.7 10*3/uL (4.8-10.8)
[2019-09-17 16:59] LABS: CREATININE 1.57 mg/dL (0.55-1.02); POTASSIUM 3.8 mmol/L (3.5-5.1)
== END | disposition home or self-care (01) ==
LOC: LAB 15:30
PROVIDERS: Internal Medicine
DX: E11.22 Type 2 diabetes mellitus with diabetic chronic kidney disease (principal); K29.71 Gastritis, unspecified, with bleeding

== ENCOUNTER 2019-12-05 23:32 | Inpatient (IN) | payer OTHER ==
[~2019-12-05] VITALS: Ht 165.1 cm; Wt 70.0 kg
[2019-12-05 23:32] VITALS: BP 117/74
[2019-12-05 23:57] LABS: BASO % 0.3 % (0.0-1.0); EOS % 0.3 % (1.0-4.0); HEMATOCRIT 23.3 % (37.0-47.0); LYMPH # 0.6 10*3/uL (1.3-4.4); LYMPH % 8.6 % (27.0-41.0); MEAN CELL VOLUME 94.7 fl (81.0-99.0); MEAN CORPUSCULAR HGB 28.5 pg (27.0-31.0); MEAN PLATELET VOLUME 11.6 fl (9.6-12.3); MONO # 0.3 10*3/uL (0.1-1.0); MONO % 3.9 % (3.0-9.0); NEUT # 5.7 10*3/uL (2.3-7.9); NEUT % 85.3 % (47.0-73.0); PLATELET COUNT AUTOMATED 90 10*3/uL (130-400); RED BLOOD COUNT 2.46 10*6/uL (4.10-5.10); RED CELL DISTRI WIDTH 18.9 % (0-14.5); WHITE BLOOD COUNT 6.7 10*3/uL (4.8-10.8)
[2019-12-06] VITALS (15 sets, daily range): BP systolic 92–124; BP diastolic 60–85
[2019-12-06 00:07] LABS: ACT PARTIAL THROMBO TIME 24.5 SECONDS (20.0-32.1); INTERNATIONAL NORM RATIO 1.3 (2.0-3.5)
[2019-12-06 00:11] LABS: ALBUMIN 2.4 gm/dl (3.1-4.5); CREATININE 2.99 mg/dL (0.55-1.02); POTASSIUM 3.9 mmol/L (3.5-5.1); TOTAL PROTEIN 6.4 gm/dL (6.4-8.2)
[2019-12-06 00:41] LABS: TROPONIN I 0.198 ng/ml (<0.045)
--- NOTE | 2019-12-06 02:00 | NUR ---
A 69, admitted to , under the services of BRENT Leo MD with a diagnosis of CHF, RENAL FAILURE, ELEVATED. Chief complaint is SOB. Patient arrived via bed from ER. Monitor applied. Initial assessment completed. Vital signs taken and recorded. BRENT LEO MD notified of admission to the unit. Orders received. See assessment for past medical history, medications and allergies. Patient and/or family oriented to unit. [facility] visitation policy reviewed. Clothing/patient valuable form completed. TED NOYOLA
--- NOTE | 2019-12-06 02:30 | NUR ---
DR. BEVERLY NOTIFIED OF MED REC PARTIALLY DONE AND NEED FOR WOUND ORDERS.
[2019-12-06] MEDS ORDERED: CLOPIDOGREL75 MG PO (04:44)
--- NOTE | 2019-12-06 06:13 | NUR ---
MATI MILIAN [id number] Please refer to the physician's history and physical for past medical history, comorbid conditions, and allergies. Diagnosis: CHF,RENAL FAILURE,ELEVATED TROPONIN Rojelio Score: 17,AT RISK WOUND DESCRIPTIONS: Wound Number: 1 Location of the wound: left hand Type of wound: scab Thickness: Partial Size: 1.1cm x 0.4cm x <0.1cm Tunneling: none Undermining: none Sinus Tract: none Presence of Exudate: none Amount: None Color: Red Odor: None Periwound Skin Appearance: Normal Wound edges: approximated Pain (associated with wound): none at time of assessment How does patient state this happened? pt stated bump the area and it opened up Wound Number: 2 Location of the wound: left leg Thickness: Partial Size: 15.0cm x 20.0cm x 0.1cm Tunneling: none Undermining: none Sinus Tract: none Presence of Exudate: Serous Amount: Moderate Color: Red Odor: None Periwound Skin Appearance: Cool, Erythema Wound edges: approximated Pain (associated with wound): none at time of assessment How does patient state this happened? pt state this just started Wound Number: 3 Location of the wound: left lateral foot Type of wound: skin tear Thickness: Partial Size: 0.3cm x 0.4cm x <0.1cm Tunneling: none Undermining: none Sinus Tract: none Presence of Exudate: none Amount: none Color: Red Odor: None Periwound Skin Appearance: Cool, Erythema Wound edges: approximated Pain (associated with wound): none at time of assessment How does patient state this happened? pt state this just started Wound Number: 4 Location of the wound: left lateral base of 5th toe Type of wound: unstageable Thickness: Full Size: 0.4cm x 0.4cm x <0.1cm Tunneling: none Undermining: none Sinus Tract: none Presence of Exudate: none Amount: None Color: brown, bolivar Odor: None Periwound Skin Appearance: Cool, Erythema Wound edges: approximated Pain (associated with wound): none at time of assessment How does patient state this happened? pt state this just started Wound Number: 5 Location of the wound: right leg Thickness: Partial Size: 9.5cm x 20.0cm x 0.1cm Tunneling: none Undermining: none Sinus Tract: none Presence of Exudate: Serous Amount: Moderate Color: Red Odor: None Periwound Skin Appearance: Cool, Erythema Wound edges: approximated Pain (associated with wound): none at time of assessment How does patient state this happened? pt state this just started Wound Number: 6 Location of the wound: right top of foot Type of wound: Scab Thickness: Partial Size: 0.4cm x 0.5cm x <0.1cm Tunneling: none Undermining: none Sinus Tract: none Presence of Exudate: Serous Amount: Moderate Color: Red Odor: None Periwound Skin Appearance: Cool, Erythema Wound edges: approximated Pain (associated with wound): none at time of assessment How does patient state this happened? pt state this just started Wound Number: 7 Location of the wound: Plantar aspect of right foot Type of wound: unstageable Thickness: Full Size: 4.5cm x 4.0cm x <0.1cm Tunneling: none Undermining: none Sinus Tract: none Presence of Exudate: none Amount: none Color: brown, bolivar Odor: None Periwound Skin Appearance: Cool, Erythema Wound edges: approximated Pain (associated with wound): none at time of assessment How does patient state this happened? pt state this just started Wound Number: 8 Location of the wound: right 2nd toe Type of wound: DTI Size: 0.6cm x 1.0cm x <0.1cm Tunneling: none Undermining: none Sinus Tract: none Presence of Exudate: none Amount: None Color: dark red Odor: None Periwound Skin Appearance: Normal Wound edges: approximated Pain (associated with wound): none at time of asesssment How does patient state this happened? pt stated these just started Wound Number: 9 Location of the wound: left 2nd toe Type of wound: DTI Size: 0.6cm x 0.5cm x <0.1cm Tunneling: none Undermining: none Sinus Tract: none Presence of Exudate: none Amount: none Color: dark red, purple Odor: None Periwound Skin Appearance: Cool, Erythema Wound edges: approximated Pain (associated with wound): none at time of assessment How does patient state this happened? pt state this just started Wound Number: 10 Location of the wound: right great toe Type of wound: DTI Size: 0.6cm x 0.6cm x <0.1cm Tunneling: none Undermining: none Sinus Tract: none Presence of Exudate: none Amount: none Color: dark red Odor: None Periwound Skin Appearance: Cool, Erythema Wound edges: approximated Pain (associated with wound): none at time of assessment How does patient state this happened? pt state this just started Wound Number:11 Location of the wound: right 4th toe proximal Type of wound: DTI Size: 0.2cm x 0.2cm x <0.1cm Tunneling: none Undermining: none Sinus Tract: none Presence of Exudate: none Amount: none Color: dark red Odor: None Periwound Skin Appearance: Cool, Erythema Wound edges: approximated Pain (associated with wound): none at time of assessment How does patient state this happened? pt state this just started Wound Number: 12 Location of the wound: right 4th toe distal Type of wound: DTI Size: 0.1cm x 0.2cm x <0.1cm Tunneling: none Undermining: none Sinus Tract: none Presence of Exudate: none Amount: none Color: Dark red Odor: None Periwound Skin Appearance: Cool, Erythema Wound edges: approximated Pain (associated with wound): none at time of assessment How does patient state this happened? pt state this just started Wound Number: 13 Location of the wound: right medial aspect great toe Type of wound: DTI Size: 0.5cm x 0.4cm x 0.1cm Tunneling: none Undermining: none Sinus Tract: none Presence of Exudate: none Amount: none Color: dark red Odor: None Periwound Skin Appearance: Cool, Erythema Wound edges: approximated Pain (associated with wound): none at time of assessment How does patient state this happened? pt state this just started Patient has dryness scaly skin noted to the top of bilatreal feet at the bases of her toes.No drainage at time of assessment. Patient stated she had her third toe removed she agreed to follow with podiatry while she was here but she stated she will no make any follow up appointment until Dr. Waterman gives her the okay to do so. She stated once she is given the okay she will follow up with Dr. Akhtar who is her foot doctor. Surface the patient is resting on: Isoflex SKIN PREVENTION RECOMMENDATION: 1. Pressure redistribution support surface as appropriate 2. Elevate heels 3. Remove boots/TEDS every shift and reapply 4. Head of bed 30 degrees as tolerated 5. Assess nutrition and hydration 6. Manage moisture 7. Avoid the use of containment devices while in bed 8. Use absorptive products on surfaces limit layers of linens on bed 9. Turn and reposition every 1-2 hours in bed and every 1 hour in chair as tolerated 10. Weight shifts every 15 minutes while up in chair 11. Offloading with pillows or device to keep heels elevated off bed 12. Monitor skin at least every shift 13. Inspect under medical devices twice a day WOUND TREATMENT RECOMMENDATIONS: Venous and arterial studies to bilateral feet due to non healing wounds. Consult podiatry for areas to bilatera lower extremities. Heel raiser pro boots to bilateral feet. Partial thickness guidelines: Cleanse left hand with nss and apply sureprep around the wound hydrogel to wound bed and cover with optifoam gentle every 2 days and prn for soiling. Cleanse right leg, left leg, left lateral foot proximal ,left lateral foot distal, top of right foot, top of left foot, bottom right foot with nss apply betadine soaked adaptic cover with abd pad and lightly wrap with kerlix daily and prn for soiling Apply sureprep to right 2nd toe, left 2nd toe, right great toe, right 4th toe and right medial aspect of great toe and cover with dsd daily and prn for soiling.
--- NOTE | 2019-12-06 06:50 | NUR ---
CONSULT CALLED TO DR. BYRD ANSWERING SERVICE
--- NOTE | 2019-12-06 07:00 | NUR ---
ARRIVED ON SHIFT, INTRODUCED TO PATIENT, BED IN LOW POSITION, WHEEL LOCKS ENGAGED. SR UP X 2 FOR TURNING AND REPOSITIONING, BED ALARM ON, CALL LIGHT WITHIN REACH, NO NEEDS VOICED AT THIS TIME, WHITE BOARD UPDATED.
--- NOTE | 2019-12-06 09:13 | NUR ---
CALL [PLACED TO DR. APONTE, COVERING RESIDENT FOR DR. CHIU, ADDRESSED PATIENTS HEMAGLOBIN OF 7, ORDERES FOR 2 UNITS PRB, WITH TRANSFUSE 1 NOW. AND OCCULT STOOL.
--- NOTE | 2019-12-06 10:00 | NUR ---
Dr. Solano notified of wound care recommendations.
--- NOTE | 2019-12-06 11:34 | NUR ---
CALL PLACED TO DR. YU, ADVISED OF CONSULT ORDER RECEIVED FOR UA
--- NOTE | 2019-12-06 13:45 | NUR ---
Nutritional Support Services Note: Pt is eating 100% of meals. Cardiac diet as ordered. Pt is anticipating a pacmeaker nnsertion. Has a life vest. Wounds noted. Will provide pt with a night snack. No other Nutrition Intervention needed at this time. Will follwo if needed. Aicha Johnson Rdn Ld
[2019-12-06 14:08] LABS: ARTERIAL BLOOD GAS PH 7.483 (7.35-7.45)
[2019-12-06 14:09] LABS: ABG BASE EXCESS -8.6 mmol/L (-2.0-2.0)
--- NOTE | 2019-12-06 15:20 | NUR ---
CALL PLACED TO DR. WEISS, ADVISED OF NEW CONSULT HE VERSED HE WILL BE IN TOMORROW.
[2019-12-06 18:38] LABS: BILIRUBIN NEGATIVE (NEGATIVE); BLOOD 3+ (NEGATIVE); CLARITY SL CLOUDY (CLEAR); COLOR YELLOW (YELLOW); GLUCOSE NEGATIVE (NEGATIVE); KETONE NEGATIVE (NEGATIVE)
[2019-12-06 18:39] LABS: LEUKO ESTERASE 1+ (NEGATIVE); NITRITE NEGATIVE (NEGATIVE); UROBILINOGEN 0.2 E.U./dl (0.2-1.0)
[2019-12-06 18:41] LABS: BACTERIA 1+; RBC 16-20 rbc/hpf (0-2); WBC 21-30 wbc/hpf (0-5)
[2019-12-07] VITALS: BP 128/80
--- NOTE | 2019-12-07 02:20 | NUR ---
DR. HUDSON ANSWERING SERVICE NOTIFIED OF 8-BEAT RUN OF V-TACH.
[2019-12-07 06:05] LABS: HEMATOCRIT 29.4 % (37.0-47.0); HEMOGLOBIN 9.1 g/dl (12.0-16.0); MEAN CELL VOLUME 92.2 fl (81.0-99.0); MEAN CORPUSCULAR HGB 28.5 pg (27.0-31.0); MEAN PLATELET VOLUME 11.9 fl (9.6-12.3); PLATELET COUNT AUTOMATED 90 10*3/uL (130-400); RED BLOOD COUNT 3.19 10*6/uL (4.10-5.10); RED CELL DISTRI WIDTH 18.4 % (0-14.5); WHITE BLOOD COUNT 4.7 10*3/uL (4.8-10.8)
[2019-12-07 06:36] LABS: ALBUMIN 2.5 gm/dl (3.1-4.5); CREATININE 3.3 mg/dL (0.55-1.02); PHOSPHOROUS 5.9 mg/dL (2.5-4.9); TOTAL PROTEIN 6.6 gm/dL (6.4-8.2)
[2019-12-07 06:52] LABS: THYROID STIM HORMONE (HS) 2.13 uIU/ml (0.358-4.75)
[2019-12-07 07:33] LABS: BURR CELLS FEW; POLYCHROMASIA SLIGHT; SCHISTOCYTES FEW; TOTAL CELLS COUNTED 100 #CELLS
[2019-12-07 07:34] LABS: OVALOCYTES FEW; PLATELET SUFFICIENCY LOW (NORMAL)
[2019-12-07 07:37] LABS: VITAMIN D, 25-HYDROXY 46.7 ng/mL (30-100)
[2019-12-07 08:00] VITALS: BP 119/77; BP 122/62
--- NOTE | 2019-12-07 08:30 | NUR ---
PT RESTING IN BED/ NO DISTRESS NOTED. WILL MONITOR
[2019-12-07 12:00] VITALS: BP 118/84
--- NOTE | 2019-12-07 12:25 | NUR ---
Manager Electrical called to talk to patient. Patient states lives at home alone with her family checking in on her. There are 0 steps in the home. She has a wheelchair ramp. Physician: Dr. Quincy Waterman Pharmacy: [facility] Home health services: [facility], not currently Patient's level of ADLs: INDEPENDENT Patient has working utilities: yes DME: has a walker and a cane but doesn't have to use either, life vest Follow-up physician's appointment after d/c: she prefers to make her own follow up appt after discharge Does patient want to access PORTAL?: no Discharge plan discussed with patient. She lives at home alone with her family checking in on her. She is independent in her ADLs and ambulation. Discussed home health care services and she denies any home needs. She states she has a walker and cane at home but doesn't have to use them. When medically stable she will be discharged to home. Her sister or [id number] will provide transportation on discharge. NEAL NARAYANAN
--- NOTE | 2019-12-07 15:00 | NUR ---
DRESSING DONE TO BILATERAL LE ORDERED
[2019-12-07 16:00] VITALS: BP 110/75
--- NOTE | 2019-12-07 16:49 | NUR ---
PT REFUSED DRESSING TO LEFT HAND
[2019-12-07 20:00] VITALS: BP 106/64
[2019-12-08] VITALS: BP 114/73
[2019-12-08 07:43] VITALS: BP 104/68
[2019-12-08 12:00] VITALS: BP 116/51
[2019-12-08 15:29] LABS: HEMATOCRIT 29.7 % (37.0-47.0); HEMOGLOBIN 9.4 g/dl (12.0-16.0); MEAN CORPUSCULAR HGB 29.1 pg (27.0-31.0); MEAN CORPUSCULAR HGB CONC 31.6 g/dl (33.0-37.0); MEAN PLATELET VOLUME 11.4 fl (9.6-12.3); PLATELET COUNT AUTOMATED 108 10*3/uL (130-400); RED BLOOD COUNT 3.23 10*6/uL (4.10-5.10); RED CELL DISTRI WIDTH 18.9 % (0-14.5); WHITE BLOOD COUNT 13.6 10*3/uL (4.8-10.8)
[2019-12-08 15:44] LABS: CREATININE 3.17 mg/dL (0.55-1.02); POTASSIUM 4.1 mmol/L (3.5-5.1)
[2019-12-08 15:49] LABS: BURR CELLS FEW; PLATELET SUFFICIENCY LOW (NORMAL); TOTAL CELLS COUNTED 100 #CELLS
[2019-12-08 16:00] VITALS: BP 113/85
--- NOTE | 2019-12-08 16:28 | NUR ---
DR YU CALLED AND NOTIFIED OF LABS
[2019-12-08 20:00] VITALS: BP 114/70
--- NOTE | 2019-12-08 20:54 | NUR ---
DR CHIU AWARE OF PATIENT C/O ABDOMINAL GAS AND STUFFY NOSE. ORDER TAKEN FOR ONE TIME CLARITIN D AND GI COCKTAIL
[2019-12-09] VITALS (7 sets, daily range): BP systolic 99–128; BP diastolic 71–85
--- NOTE | 2019-12-09 03:32 | NUR ---
24 HR chart check completed.
[2019-12-09 06:06] LABS: CREATININE 3.15 mg/dL (0.55-1.02); POTASSIUM 3.8 mmol/L (3.5-5.1)
[2019-12-09 06:11] LABS: BASO % 0.1 % (0.0-1.0); EOS % 0.3 % (1.0-4.0); HEMATOCRIT 30.6 % (37.0-47.0); HEMOGLOBIN 9.5 g/dl (12.0-16.0); LYMPH # 0.5 10*3/uL (1.3-4.4); LYMPH % 6.8 % (27.0-41.0); MEAN CELL VOLUME 93.3 fl (81.0-99.0); MEAN PLATELET VOLUME 11.4 fl (9.6-12.3); MONO # 0.3 10*3/uL (0.1-1.0); MONO % 3.4 % (3.0-9.0); NEUT # 6.6 10*3/uL (2.3-7.9); NEUT % 87.9 % (47.0-73.0); PLATELET COUNT AUTOMATED 87 10*3/uL (130-400); RED BLOOD COUNT 3.28 10*6/uL (4.10-5.10); RED CELL DISTRI WIDTH 18.9 % (0-14.5); WHITE BLOOD COUNT 7.5 10*3/uL (4.8-10.8)
--- NOTE | 2019-12-09 07:20 | NUR ---
PT TO TESTING VIA WC. NO DISTRESS NOTED/ NO VOICED C/O. WILL MONITOR
--- NOTE | 2019-12-09 08:55 | NUR ---
SPOKE WITH DR BYRD REGRDING CONSULT NO NEW ORDERS RECIEVED
--- NOTE | 2019-12-09 09:00 | NUR ---
case management talks with patient, she will return home when medically stable and denies any home needs
--- NOTE | 2019-12-09 10:28 | NUR ---
DR BYRD HERE TO SEE PT DR BYRD SPOKE WITH DR CHIU REGARDING PT PROGRESS
--- NOTE | 2019-12-09 20:25 | NUR ---
PATIENT STATES SHE ONLY WANTS TO TAKE HER COREG ONCE A DAY. TONIGHT'S SCHEDULED DOSE REFUSED.
--- NOTE | 2019-12-09 20:52 | NUR ---
BLOOD SUGAR RECHECK 50
--- NOTE | 2019-12-09 21:12 | NUR ---
DR DIGGS AWARE OF BLOOD SUGAR AND AMP OF DEXTROSE GIVEN.
--- NOTE | 2019-12-09 21:54 | NUR ---
BLOOD SUGAR CHECK 105. HEART RATE GOING BETWEEN 110-130. MONITOR ELECTRODES CHANGED. PATIENT STATES SHE IS VERY TIRED TONIGHT. RHYTHM CHANGE ON THE MONITOR. DR DIGGS MADE AWARE. EDUCATED PATIENT ON IMPORTANCE OF TAKING REFUSED COREG.
--- NOTE | 2019-12-09 22:00 | NUR ---
ORDERS FROM DR DIGGS TAKEN AT THIS TIME.
--- NOTE | 2019-12-09 22:03 | NUR ---
PATIENT DENIES ANY CHEST PAIN, HEAVINESS, OR SHORTNESS OF BREATH AT THIS TIME.
--- NOTE | 2019-12-09 22:33 | NUR ---
24 HR chart check completed.
--- NOTE | 2019-12-09 22:36 | NUR ---
DR DIGGS AWARE OF EKG RESULTS. STATES NOT TO CALL DR BYRD AT THIS TIME.
--- NOTE | 2019-12-09 22:42 | NUR ---
CALLED TO MAKE DR DIGGS AWARE OF CRITICAL TROPONIN.
--- NOTE | 2019-12-09 22:43 | NUR ---
DR DIGGS STATES TO GET REPEAT TROPONIN IN THREE HOURS. NO CALL NEEDS MADE TO [facility] AT THIS TIME
[2019-12-10] VITALS (7 sets, daily range): BP systolic 97–122; BP diastolic 50–82
--- NOTE | 2019-12-10 02:10 | NUR ---
DR DIGGS AWARE OF TROPONIN. STATES TO GET ANOTHER ONE IN THREE HOURS
[2019-12-10 05:53] LABS: ALBUMIN 2.4 gm/dl (3.1-4.5)
--- NOTE | 2019-12-10 05:57 | NUR ---
DR DIGGS AWARE OF CRITICAL TROPONIN
[2019-12-10 05:58] LABS: CREATININE 3.07 mg/dL (0.55-1.02)
[2019-12-10 06:36] LABS: EOS % 0.5 % (1.0-4.0); HEMATOCRIT 28.5 % (37.0-47.0); HEMOGLOBIN 8.9 g/dl (12.0-16.0); LYMPH # 0.6 10*3/uL (1.3-4.4); LYMPH % 9.5 % (27.0-41.0); MEAN CELL VOLUME 93.1 fl (81.0-99.0); MEAN CORPUSCULAR HGB 29.1 pg (27.0-31.0); MEAN CORPUSCULAR HGB CONC 31.2 g/dl (33.0-37.0); MEAN PLATELET VOLUME 12.3 fl (9.6-12.3); MONO # 0.2 10*3/uL (0.1-1.0); MONO % 2.9 % (3.0-9.0); NEUT # 5.6 10*3/uL (2.3-7.9); NEUT % 85.4 % (47.0-73.0); RED BLOOD COUNT 3.06 10*6/uL (4.10-5.10); RED CELL DISTRI WIDTH 18.4 % (0-14.5); WHITE BLOOD COUNT 6.5 10*3/uL (4.8-10.8)
[2019-12-10 06:42] LABS: PLATELET COUNT AUTOMATED 59 10*3/uL (130-400)
--- NOTE | 2019-12-10 07:38 | NUR ---
DR BYRD HERE NOTIFIED OF ELEVATED TROPONINS DURING THE NIGHT
--- NOTE | 2019-12-10 09:46 | NUR ---
PT RESTING IN BED. NO DISTRESS NOTED. WILL MONITOR
--- NOTE | 2019-12-10 10:28 | NUR ---
patient will return home when medically stable and denies any home needs, case management with follow
--- NOTE | 2019-12-10 10:58 | NUR ---
PT CONTINUES TO REFUSE LEFT HAND DRESSING
--- NOTE | 2019-12-10 11:00 | NUR ---
Occupational Therapy evaluation completed on four with full evaluation to follow. Recommend occupational therapy per plan of care and SNF upon discharge. If refused, home with SN, OT, and PT with 27/03 supervision assist. Thank you for this referral. Kaylyn Young OTR/L
--- NOTE | 2019-12-10 11:00 | NUR ---
Physical Therapy evaluation completed on 4th floor with full evaluation to follow. Recommend physical therapy per plan of care and SNF upon discharge, pt states she is looking at/agreeable to short term rehab prior to home. Thank you for this referral. Rebecca Basurto PT
[2019-12-11] VITALS: BP 102/59
[2019-12-11 05:33] LABS: ALBUMIN 2.2 gm/dl (3.1-4.5); CREATININE 3.13 mg/dL (0.55-1.02); PHOSPHOROUS 4.3 mg/dL (2.5-4.9); POTASSIUM 4.1 mmol/L (3.5-5.1); TOTAL PROTEIN 5.7 gm/dL (6.4-8.2)
[2019-12-11 06:02] LABS: BASO % 0.1 % (0.0-1.0); EOS # 0.1 10*3/uL (0.0-0.4); EOS % 0.8 % (1.0-4.0); HEMATOCRIT 27.9 % (37.0-47.0); HEMOGLOBIN 8.7 g/dl (12.0-16.0); LYMPH # 0.5 10*3/uL (1.3-4.4); LYMPH % 7.1 % (27.0-41.0); MEAN CELL VOLUME 92.4 fl (81.0-99.0); MEAN CORPUSCULAR HGB 28.8 pg (27.0-31.0); MEAN CORPUSCULAR HGB CONC 31.2 g/dl (33.0-37.0); MEAN PLATELET VOLUME 12.7 fl (9.6-12.3); MONO # 0.2 10*3/uL (0.1-1.0); MONO % 3.4 % (3.0-9.0); NEUT # 6.3 10*3/uL (2.3-7.9); NEUT % 87.5 % (47.0-73.0); PLATELET COUNT AUTOMATED 54 10*3/uL (130-400); RED BLOOD COUNT 3.02 10*6/uL (4.10-5.10); RED CELL DISTRI WIDTH 18.8 % (0-14.5); WHITE BLOOD COUNT 7.2 10*3/uL (4.8-10.8)
[2019-12-11 08:00] VITALS: BP 106/74
--- NOTE | 2019-12-11 08:50 | NUR ---
PHYSICAL THERAPY Patient seen this am 1;1 for therapy visit and was sitting up on EOB upon therapist arrival. Patient identified by name / and reports mild increase in B LE edema. OT tax assistant was also present for observation only this session as patient transfers sit to stand CGA x 1. Patient ambulates with use of wh walker, CGA, 20'x 1 to bathroom, then additonal 45'x 1, demonstrating slow, steady robyn. Patient is still very cautious during all 90/180 turns and fatigues quickly, requiring v/c for improved standing posture. Patient returned to bedside chair and remained with call light, tray table and telephone. Will continue per POC as tolerated, total treatment time 16 minutes. Duarte Moon, CAR PORTER
--- NOTE | 2019-12-11 08:55 | NUR ---
OT NOTE Pt was seen this A.M. 1:1 for 15 minute OT session. Upon arrival pt was sitting upright on the EOB. Pt identified by name and and had complaints of BLE edema and discomfort. While sitting EOB pt donned B socks with SBA while bringing her leg up to her knee. Sit to stand completed from bed level with CGA and use of w/w for UE support. Functional mobility was then completed to the bathroom with CGA and use of w/w. There she transferred on/off standard commode with CGA and use of grab bar for UE support. Clothing management completed with CGA. Pt then stood sink side while washing her hands with CGA for safety. Challenged pt's dynamic standing tolerance needed for increased I in self care tasks and functinal transfers, pt was able to tolerate aprox 5 minutes at a time before sitting due to fatigue. Pt was left sitting upright in the recliner with call light in hand, tray table in place, and phone in reach. Continue with rec D/C plan to SNF. DMITRY Araya
[2019-12-11 12:00] VITALS: BP 107/55
[2019-12-11 16:00] VITALS: BP 94/82
--- NOTE | 2019-12-11 17:46 | NUR ---
IN PT ROOM DUE TO LIFE VEST BATTERY BEING LOW, PT TES SHE HAS NO ONE THAT IS ABLE TO BRING IN THE ABTTERY FOR THE LIFE VEST AT [facility]
--- NOTE | 2019-12-11 18:24 | NUR ---
IV started left forearm with #22 protective cath after 1 attempts. Site prepped with Chloroprep. Sterile dressing applied. Patient tolerated procedure well. ASIM JONES
[2019-12-11 20:00] VITALS: BP 99/73
--- NOTE | 2019-12-11 21:01 | NUR ---
TYLENOL GIVEN PER ORDER FOR GENERAL BACK ACHE PER PATIENT PAIN "4". SEE MAR.
[2019-12-12] VITALS: BP 106/74
--- NOTE | 2019-12-12 00:38 | NUR ---
24 HR chart check completed.
[2019-12-12 08:00] VITALS: BP 118/60
--- NOTE | 2019-12-12 08:57 | NUR ---
DR BYRD AND HE STATES THAT WHEN THE PATIENT IS DISCHARGED THAT HE WANTS HER TO COME INTO HIS OFFICE FOR A ICD WITHIN TWO WEEKS
--- NOTE | 2019-12-12 09:25 | NUR ---
PHYSICAL THERAPY Patient seen this am 1:1 for therapy visit and was resting supine in bed upon therapist arrival. Patient identified by name / and transfers supine to sit EOB with CGA x 1. OT family medicine physician assistant was also present this morning for observation only this session as patient voices no new c/o's. Patient instructed on and completed seated B LE therex, all planes, x 15 reps each to increase LE strength / ROM, followed by sit to stand transfer, CGA. Patient ambulates with use of wh walker, CGA, 40'x 2, demonstrating slow, steady robyn. Patient still very cautious during all 90/180 turns for fear of falling and needed brief standing rest break secondary to increased fatigue. Patient returned to bedside chair and remained with call light, tray table and telephone. Will continue per POC as tolerated, total treatment time 23 minutes. Duarte Moon, CUE SELECTOR
--- NOTE | 2019-12-12 09:42 | NUR ---
DR BYRD ON THE PHONE AND STATES TO DC LOVENOX AND TO HOLD PLAVIX FOR NOW AND SEE WHAT BLOOD WORK READS TOMORROW
--- NOTE | 2019-12-12 09:52 | NUR ---
OT NOTE Pt was seen this A.M. 1:1 for 17 minute OT session. Upon arrival pt was supine in bed. Pt identified by name and and had no complaints at this time. Pt transferred supine to sit EOB with SBA. While sitting EOB pt donned B socks with supervision while bringing one leg up over her knee. Sit to stand completed from bed level with CGA and use of w/w. Functional mobility was then completed to the bathroom and back with CGA and use of w/w. Challenged pt's dynamic standing tolerance needed for increased I in and enhnaced safety, pt was able to tolerate aprox 5-6 minutes before sitting due to fatigue. Then challenged pt's dynamic standing balance to simulate ADL tasks and enhance safety, pt was able to maintain G- stanidng balance throughout. Pt was left sitting upright in the recliner with call light in hand, tray table in place, and phone in reach. Continue with rec D/C plan to SNF. ORQUIDEA Araya/Jen
[2019-12-12 11:25] LABS: BASO % 0.1 % (0.0-1.0); EOS % 0.4 % (1.0-4.0); HEMOGLOBIN 9.7 g/dl (12.0-16.0); LYMPH # 0.6 10*3/uL (1.3-4.4); LYMPH % 6.2 % (27.0-41.0); MEAN CELL VOLUME 92.8 fl (81.0-99.0); MEAN CORPUSCULAR HGB CONC 31.3 g/dl (33.0-37.0); MONO # 0.2 10*3/uL (0.1-1.0); MONO % 2.4 % (3.0-9.0); NEUT # 8.3 10*3/uL (2.3-7.9); NEUT % 89.4 % (47.0-73.0); PLATELET COUNT AUTOMATED 65 10*3/uL (130-400); RED BLOOD COUNT 3.34 10*6/uL (4.10-5.10); RED CELL DISTRI WIDTH 18.7 % (0-14.5); WHITE BLOOD COUNT 9.3 10*3/uL (4.8-10.8)
[2019-12-12 11:36] LABS: ALBUMIN 2.7 gm/dl (3.1-4.5); CREATININE 3.14 mg/dL (0.55-1.02); POTASSIUM 4.2 mmol/L (3.5-5.1); TOTAL PROTEIN 6.6 gm/dL (6.4-8.2)
[2019-12-12 12:00] VITALS: BP 116/62
--- NOTE | 2019-12-12 12:07 | NUR ---
Commercial Attache call to talk to patient regarding short term SNF vs home health. She is not sure at this time and wishes for CM to ask her again tomorrow morning. Discharge plan undecided at this time.
--- NOTE | 2019-12-12 13:30 | NUR ---
DR YU IN TO SEE THE PATIENT, WILL BE PUTTING ORDERS IN SHORTLY.
--- NOTE | 2019-12-12 15:18 | NUR ---
DR APONTE CALLED DUE TO PATIENT IV GOING BAD AND NOT BEING ABLE TO INSERT ANOTHER ONE, AND SURGERY ATTMEPTED WITH NO SUCCESS. MIDLINE ORDER PLACED. CALLED DR GARZA AND HE STATES IF HE GETS TIME HE WILL COME AND TRY TO PLACE THIS LINE
[2019-12-12 16:00] VITALS: BP 111/67
--- NOTE | 2019-12-12 18:25 | NUR ---
CALLED RESPIRATORY PER PT REQUEST OF HAVING TROUBLES BREATHING
[2019-12-12 20:00] VITALS: BP 103/63
--- NOTE | 2019-12-12 23:40 | NUR ---
IV started left antecubital with #24 angiocath after 1 attempt. The IV site was prepped with Chloraprep. Heparin lock attached. Sterile dressing applied. Patient tolerated precedure well. Procedure performed according to [facility] policy & procedure. CALL PLACED TO DR. MERRILL IN REGARDS TO ALBUMIN AND LASIX NOT GIVEN TODAY D/T NO IV ACCESS REQUESTED TO GIVE PATIENT MEDICATIONS NOW. HE SAID THIS WAS OK.
[2019-12-13] VITALS: BP 96/48
[2019-12-13 04:00] VITALS: BP 92/40
--- NOTE | 2019-12-13 05:05 | NUR ---
This nurse went into evaluate patient for follow visit and patient stated she wasn't feeling well at this time and she doesn't want to do that since we already seen her areas.
[2019-12-13 05:06] LABS: CREATININE,URINE 29.9 mg/dL (Not Estab.)
--- NOTE | 2019-12-13 06:10 | NUR ---
CONSULT COMPLETE FOR PODIATRY.
--- NOTE | 2019-12-13 07:50 | NUR ---
PHYSICAL THERAPY Patient seen this am 1;1 for therapy visit and was sitting up on EOB upon therapist arrival. Patient identified by name / and present with continuos O2-2L via NC. Patient reports bouts of SOB last evening and again this morning and joined by OT sales service assistant who was present for observation only this session. Patient recorded SpO2 98%, HR 75 bpm at rest and educated on improved seated posture secondary to rounded shoulders, "slouched" posture with forward head lean / chin tuck position. Patient instructed to sit up straight, performing Scapular retraction / posterior shoulder roll ex to promote improved seated posture, including v/c for purse lip breathing technique. Patient tolerated approx 10 minutes static EOB sit and transfered sit to supine, MIN A x 1. Patient remained in bed with HOB elevated, call light, tray table and telephone as Respiratory therapist arrived. Will continue per POC as tolerated, total treatment time 13 minutes. Duarte Moon, ENTERTAINMENT PRODUCTION PROFESSIONAL
[2019-12-13 08:00] VITALS: BP 106/64
--- NOTE | 2019-12-13 08:02 | NUR ---
OT NOTE Pt was seen this A.M. 1:1 for 17 minute OT session. Upon arrival pt was sitting upright on the EOB. Pt identified by name and and had complaints of generalized weakness, fatigue, and feeling SOB. Pt presented to therapy with continuous 2L-O2 via NC which she remained on throughout the entire session, pt's resting SpO2 was 98% and heart rate 75 bpm. Pt was educated on breathing and relaxation techniques. While sittting EOB pt was also educated on energy conservation and work simplification, pt verbalized understanding. Pt then completed sit to stands from bed level with CGA and use of w/w for UE support. Challenged pt's static standing tolerance needed for increased I in self care tasks and functional transfers, pt was able to tolerate aprox 60 seconds at a time before sitting due to fatigue. Pt then transferred back into bed sit to supine with Anable. There she was left with call light in hand, tray table in place, and bed alarm activated for safety. Continue with rec D/C plan SNF. DMITRY Araya
--- NOTE | 2019-12-13 08:10 | NUR ---
Hide Trimmer in to see patient. Discussed short term SNF vs home with home health care. She is agreeable to SNF. Discussed if she had been to a rehab facility before and she stated yes that she had been to [facility] and [facility]. When asked if she had a preference she states she would like to go to [facility]. script worker and Dr. Hawkins notified.
--- NOTE | 2019-12-13 08:27 | NUR ---
Pt taken off floor via bed for insertion of midline in OR.
--- NOTE | 2019-12-13 09:27 | NUR ---
MILA faxed new pateint referall clinical info to [facility] on this date. Pending acceptance.
--- NOTE | 2019-12-13 10:35 | NUR ---
Pt returned to floor from having midline placed. Spoke with Sally from OR who states iv was attempted x3 and they spoke with Dr. Waterman who states they may use rt arm for iv. States midline to rt upper arm after 1 attempt.
[2019-12-13 10:57] LABS: ALBUMIN 2.9 gm/dl (3.1-4.5); CREATININE 3.71 mg/dL (0.55-1.02); POTASSIUM 4.5 mmol/L (3.5-5.1); TOTAL PROTEIN 6.1 gm/dL (6.4-8.2)
[2019-12-13 11:00] LABS: BASO % 0.1 % (0.0-1.0); EOS % 0.1 % (1.0-4.0); HEMATOCRIT 27.5 % (37.0-47.0); HEMOGLOBIN 8.4 g/dl (12.0-16.0); LYMPH % 11.2 % (27.0-41.0); MEAN CELL VOLUME 95.5 fl (81.0-99.0); MEAN CORPUSCULAR HGB 29.2 pg (27.0-31.0); MEAN CORPUSCULAR HGB CONC 30.5 g/dl (33.0-37.0); MEAN PLATELET VOLUME 13.2 fl (9.6-12.3); MONO # 0.6 10*3/uL (0.1-1.0); MONO % 6.4 % (3.0-9.0); NEUT # 6.8 10*3/uL (2.3-7.9); NEUT % 79.3 % (47.0-73.0); NUCLEATED RED BLOOD CELL 0.2 % (0.0-0.0); PLATELET COUNT AUTOMATED 53 10*3/uL (130-400); RED BLOOD COUNT 2.88 10*6/uL (4.10-5.10); RED CELL DISTRI WIDTH 18.8 % (0-14.5); WHITE BLOOD COUNT 8.6 10*3/uL (4.8-10.8)
--- NOTE | 2019-12-13 11:30 | NUR ---
Offered to wash pt hair. She states she doesn't want it washed.
[2019-12-13 12:00] VITALS: BP 106/70
--- NOTE | 2019-12-13 12:53 | NUR ---
Patient has been accepted at [facility]. Patient can discharge there once medically stable and insurance has been notifed.
--- NOTE | 2019-12-13 12:57 | NUR ---
Patient has been accepted at [facility]. Discussed discharge planning with Dr. Hawkins. Patient is not medically stable for discharge.
--- NOTE | 2019-12-13 13:00 | NUR ---
HIDA scan wont be done until monday. Pt has already had lunch. Dr. Hawkins aware that test won't be done until monday.
--- NOTE | 2019-12-13 13:03 | NUR ---
PHYSICAL THERAPY Per Podiatry, patient WBAT BLE as of 12/13/2019. Continue with skilled PT services per POC. Thank you. Patricia Ibrahim,PT,DPT.
--- NOTE | 2019-12-13 13:54 | NUR ---
Attempted to reach Dr. Meyer on his cell phone. No answer at this time. Message left for him to call 4e for notification of new consult. Awaiting call back.
--- NOTE | 2019-12-13 14:10 | NUR ---
DR. Meyer notified of consult. States he will see pt in am.
--- NOTE | 2019-12-13 14:35 | NUR ---
Pt was up to bedside commode with clean hat to collect urine. Pt had small amount of stool in urine. Unable to send urine specimen at this time.
--- NOTE | 2019-12-13 15:06 | NUR ---
PHYSICAL THERAPY CO-SIGN I approve of the Physical Therapy notes written above. NEAL SPANGLER PT, DPT
--- NOTE | 2019-12-13 15:12 | NUR ---
Dr. Ko notified of troponin of 0.[address]. Ko states that pt troponin is always going to be elevated due to poor kidney function with creatinine of 3.13 and low EF. States not to order any more troponin levels at this time. Notified Dr. Hawkins of this.
--- NOTE | 2019-12-13 15:17 | NUR ---
OCCUPATIONAL THERAPY CO-SIGN I approve of the Occupational Therapy notes written above. ERICKSON ORTEGA, OTR/L
[2019-12-13 15:47] LABS: BILIRUBIN NEGATIVE (NEGATIVE); BLOOD 3+ (NEGATIVE); CLARITY CLEAR (CLEAR); COLOR YELLOW (YELLOW); GLUCOSE NEGATIVE (NEGATIVE); KETONE NEGATIVE (NEGATIVE); LEUKO ESTERASE 2+ (NEGATIVE); NITRITE NEGATIVE (NEGATIVE); UROBILINOGEN 0.2 E.U./dl (0.2-1.0)
[2019-12-13 15:50] LABS: RBC 51-100 rbc/hpf (0-2)
[2019-12-13 15:51] LABS: BACTERIA 1+; WBC 41-50 wbc/hpf (0-5)
[2019-12-13 16:00] VITALS: BP 102/58
--- NOTE | 2019-12-13 16:15 | NUR ---
Medicated with zofran iv per prn order for complaints of nausea.
--- NOTE | 2019-12-13 17:14 | NUR ---
Dr. Hawkins notified that pt is in aflutter at this time. I could not find documentation in recent h and p for this. Notified that hr in 40-50's. States to notify cardiology and ask about anticoagulation and he will notify Dr. Waterman. I spoke with Dr. Ko regarding this. States that pt has hx of aflutter and had been on coumadin in past and had a bleed. Plts also low states to continue plavix and dc coreg at this time.
--- NOTE | 2019-12-13 17:17 | NUR ---
Dr. Hawkins called back and I notified him of what Dr. Ko stated.
--- NOTE | 2019-12-13 17:31 | NUR ---
DR. Waterman called in and discontinued lasix.
--- NOTE | 2019-12-13 17:35 | NUR ---
Pt states she is no longer nauseated.
--- NOTE | 2019-12-13 19:39 | NUR ---
PATIENT IS AAOX3 RESTING IN BED WITH EASY AND REGULAR RESPERS ON 2L O2 VIA NC. ASSESSMENT IS COMPLETE WITH NO S/S OF DISTRESS NOTED AT THIS TIME. C/O HEARTBURN AND PRN TUMS GIVEN. BED IS LOW, LOCKED, AND CALL LIGHT IS WITHIN REACH. SEE SHIFT ASSESSMENT.
[2019-12-13 20:00] VITALS: BP 90/42
[2019-12-14] VITALS: BP 92/58
--- NOTE | 2019-12-14 04:38 | NUR ---
CHART CHECK COMPLETE.
[2019-12-14 05:42] LABS: ALBUMIN 2.9 gm/dl (3.1-4.5); CREATININE 3.85 mg/dL (0.55-1.02); PHOSPHOROUS 6.7 mg/dL (2.5-4.9); POTASSIUM 3.9 mmol/L (3.5-5.1); TOTAL PROTEIN 6.1 gm/dL (6.4-8.2)
--- NOTE | 2019-12-14 06:03 | NUR ---
PRN TYLENOL GIVEN AT THIS TIME FOR HEADACHE, KERLEX WRAPS TO BILATER LEGS CHANGED. PATIENT TOLERATED WELL, CALL LIGHT IS WITHIN REACH. WILL MONITOR EFFECT.
[2019-12-14 06:05] LABS: HEP B CORE AB, IGM Negative (Negative); HEPATITIS B SURFACE AG Negative (Negative); HEPATITIS C VIRUS ANTIBODY <0.1 s/co (0.0-0.9)
[2019-12-14 06:13] LABS: BASO % 0.4 % (0.0-1.0); EOS % 0.1 % (1.0-4.0); HEMATOCRIT 27.3 % (37.0-47.0); HEMOGLOBIN 8.3 g/dl (12.0-16.0); LYMPH # 0.8 10*3/uL (1.3-4.4); LYMPH % 10.4 % (27.0-41.0); MEAN CELL VOLUME 96.5 fl (81.0-99.0); MEAN CORPUSCULAR HGB 29.3 pg (27.0-31.0); MEAN CORPUSCULAR HGB CONC 30.4 g/dl (33.0-37.0); MEAN PLATELET VOLUME 12.9 fl (9.6-12.3); MONO # 0.5 10*3/uL (0.1-1.0); MONO % 5.8 % (3.0-9.0); NEUT # 6.3 10*3/uL (2.3-7.9); NEUT % 80.9 % (47.0-73.0); PLATELET COUNT AUTOMATED 59 10*3/uL (130-400); RED BLOOD COUNT 2.83 10*6/uL (4.10-5.10); RED CELL DISTRI WIDTH 18.8 % (0-14.5); WHITE BLOOD COUNT 7.8 10*3/uL (4.8-10.8)
[2019-12-14 06:17] LABS: INTERNATIONAL NORM RATIO 1.6 (2.0-3.5)
--- NOTE | 2019-12-14 09:40 | NUR ---
Pt was up out of bed to use bedside commode. Pt had optifoam to sacrum that was losing its ability to stick so this was changed. Pt had no open area here but requested it to protect her bony area. Had medium soft formed bm. Cleansed well. Pt refused bed bath. I offered again to wash pt hair and she refused. I explained we have shower caps with soap in them already and you just scrub. Pt states she is aware and does not like them.
--- NOTE | 2019-12-14 09:58 | NUR ---
Lactic acid is 3.1 trending down at this time.
--- NOTE | 2019-12-14 11:35 | NUR ---
Dr. Bhagat notified of consult.
[2019-12-14 12:00] VITALS: BP 106/48
--- NOTE | 2019-12-14 14:00 | NUR ---
DR. Waterman in and saw pt. Discussed plan of care. Discussed with pt multiple health concerns and what course pt would like to take. Discussed possiblity of transfer to [facility] if desired and possiblity of palliative care. Pt states she is going to think this over and let us know. Dr. Waterman asked me to discuss this with pt again in a few hours and to let him know pt decision. Dr. Gorman also contacted at this time and teleconference done with pt.
[2019-12-14 14:56] LABS: HEMATOCRIT 26.9 % (37.0-47.0); HEMOGLOBIN 8.3 g/dl (12.0-16.0); MEAN CELL VOLUME 95.7 fl (81.0-99.0); MEAN CORPUSCULAR HGB 29.5 pg (27.0-31.0); MEAN CORPUSCULAR HGB CONC 30.9 g/dl (33.0-37.0); MEAN PLATELET VOLUME 13.3 fl (9.6-12.3); PLATELET COUNT AUTOMATED 53 10*3/uL (130-400); RED BLOOD COUNT 2.81 10*6/uL (4.10-5.10); WHITE BLOOD COUNT 7.2 10*3/uL (4.8-10.8)
[2019-12-14 15:25] LABS: PLATELET SUFFICIENCY LOW (NORMAL); TOTAL CELLS COUNTED 100 #CELLS
[2019-12-14 15:26] LABS: MICROCYTOSIS SLIGHT; POLYCHROMASIA SLIGHT
[2019-12-14 16:00] VITALS: BP 112/60
--- NOTE | 2019-12-14 17:41 | NUR ---
Pt states she has decided she would like to be transferred to [facility]. Dr. Waterman was notified.
[2019-12-14 20:00] VITALS: BP 105/44
[2019-12-15] VITALS (8 sets, daily range): BP systolic 70–100; BP diastolic 40–52
[2019-12-15 07:06] LABS: COMPLEMENT C4 5 mg/dL (14-44); RHEUMATOID ARTHRITIS FACTOR 181.8 IU/mL (0.0-13.9)
--- NOTE | 2019-12-15 08:25 | NUR ---
pt complain of pain 10/10, all over. pt had tylenol and ultram given to her this am and had not taken it. tylenol and ultram given now.
--- NOTE | 2019-12-15 10:54 | NUR ---
MADE DR CHIU AND DR. BYRD AWARE OF PATIENT HR REMAIING FROM 39-45, DR. BYRD STATES HE WILL TALK TO DR. GAO TOMORROW ABOUT PLACING DEFIBULATOR/PACEMAKER FOR PATIENT. AT THIS TIME DR. BYRD STATES TO MONITOR PATIENT/HEART RATE. IF PATIENT BECOMES SYMPTOMATIC, HR REMAINING LESS THAN 40 AND BLOOD PRESSURE UNSTABLE, SBP <90, START PATIENT ON DOPIMINE DRIP AT 5 MCG.FOR NOW, IF PATIENT REMAINS ASYMPTOMATIC, MONITOR PATIENT AT THIS TIME. DR. CHIU AWARE OF DR. GARCIA ORDERS
--- NOTE | 2019-12-15 11:45 | NUR ---
podiatry here to look at calloused area on right foot, requested to do wound picture prior to "shaving area down", wound camera not available at this time. podiatry dr. donis, debrided area and dressed wound prior to camera being available.
--- NOTE | 2019-12-15 11:52 | NUR ---
DR. BYRD MADE AWARE THAT PATIENT NOW STATES FEELING TIRED, MANUAL BLOOD PRESSURE 76/40 WITH A HEART RATE OF 39-45. DR. BYRD WANTS PATIENT STARTED ON DOPAMINE GTT AT [address] CHIU AWARE OF DR. GARCIA ORDERS/PLAN. DR. CHIU WILL SEE PATIENT WITHIN THE HOUR AND WILL START TRANSFER POSSIBLY TO PATERSON.
--- NOTE | 2019-12-15 12:15 | NUR ---
DOPAMINE GTT STARTED AT 5 MARGARET/KG/MIN. MIDLINE FELIPE ASYMPTOMATIC. HR 54. BLOOD PRESSURE 70/42 MANUALLY. PATIENT ALERT AND ORIENTED. C/O FATIGUE. NO CHEST PAIN OR SHORTNESS OF BREATH.
--- NOTE | 2019-12-15 12:50 | NUR ---
PATIENT C/O NAUSEA. MEDICATED WITH ZOFRAN PER PRN ORDER. AT BEDSIDE. CONTACTED [facility] FOR TRANSFER FOR PACER/DEFIBRILLATOR.
--- NOTE | 2019-12-15 13:10 | NUR ---
DR HCIU IN WITH PATIENT, [facility]
--- NOTE | 2019-12-15 13:15 | NUR ---
DOPAMINE INFUSING 10MIC/KG/MIN. BLOOD PRESSURE 88/50 MANUALLY. HR 58.
--- NOTE | 2019-12-15 14:00 | NUR ---
REPORT CALLED TO SPARKLE BELL AT [facility]
--- NOTE | 2019-12-15 14:11 | NUR ---
Discharge instructions reviewed with patient/SENT TO [place] WITH PATIENT Patient receptive and verbalizes understanding. Follow-up care POST TRANSFER AND DISCHARGE FROM [place]. Written instructions SENT WITH PATIENT TO [place]. IV RIGHT UPPER ARM MIDLINE REMAINS ON TRANSFER, PT SENT WITH 3 L NC. WOUND DRESSIGNS INTACT TO LEGS, RIGH FOOT. PT DID NOT WANT PHOTOS TAKEN AT THIS TIME OF WOUNDS. NANDA SAINZ
--- NOTE | 2019-12-15 14:30 | NUR ---
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 PATIENTS SISTER UPDATED WITH PLAN OF CARE AND AWARE OF TRANSFER.
[2019-12-17 16:08] LABS: ATYPICAL PANCA <1:20 titer (Neg:<1:20)
[2019-12-18 11:04] LABS: GLOMERULAR BASEMENT AB 4 units (0-20)
== END 2019-12-15 14:30 | disposition short-term general hospital (02) | DRG 264 ==
LOC: ED 23:32 → EDHOLD 12-06 01:07 → 4E 12-06 01:07
PROVIDERS: Emergency Medicine; Internal Medicine; Internal Medicine Nephrology; Student in an Organized Health Care Education/Training Program; ADMIT Internal Medicine
PROC: 30233N1 Transfusion of Nonautologous Red Blood Cells into Peripheral Vein, Percutaneous Approach (ICD-10-PCS; principal; 2019-12-06)
PROC: 0JBQ0ZZ Excision of Right Foot Subcutaneous Tissue and Fascia, Open Approach (ICD-10-PCS; 2019-12-15)
DX: I13.0 Hypertensive heart and chronic kidney disease with heart failure and stage 1 through stage 4 chronic kidney disease, or unspecified chronic kidney disease (principal); N17.0 Acute kidney failure with tubular necrosis; E43 Unspecified severe protein-calorie malnutrition; I50.23 Acute on chronic systolic (congestive) heart failure; N39.0 Urinary tract infection, site not specified; E87.2 Acidosis; D69.3 Immune thrombocytopenic purpura; D68.9 Coagulation defect, unspecified; J44.1 Chronic obstructive pulmonary disease with (acute) exacerbation; D61.818 Other pancytopenia; E87.1 Hypo-osmolality and hyponatremia; N25.81 Secondary hyperparathyroidism of renal origin; B96.20 Unspecified Escherichia coli [E. coli] as the cause of diseases classified elsewhere; I25.10 Atherosclerotic heart disease of native coronary artery without angina pectoris; E11.22 Type 2 diabetes mellitus with diabetic chronic kidney disease; N18.3 Chronic kidney disease, stage 3 (moderate); E78.5 Hyperlipidemia, unspecified; E83.51 Hypocalcemia; E11.65 Type 2 diabetes mellitus with hyperglycemia; E87.8 Other disorders of electrolyte and fluid balance, not elsewhere classified; E53.8 Deficiency of other specified B group vitamins; R31.9 Hematuria, unspecified; R16.0 Hepatomegaly, not elsewhere classified; E11.51 Type 2 diabetes mellitus with diabetic peripheral angiopathy without gangrene; I95.9 Hypotension, unspecified; K82.8 Other specified diseases of gallbladder; I42.9 Cardiomyopathy, unspecified; E83.39 Other disorders of phosphorus metabolism; E83.42 Hypomagnesemia; M89.9 Disorder of bone, unspecified; L89.891 Pressure ulcer of other site, stage 1; S91.301A Unspecified open wound, right foot, initial encounter; X58.XXXA Exposure to other specified factors, initial encounter; Y93.89 Activity, other specified; Y92.89 Other specified places as the place of occurrence of the external cause; Y99.8 Other external cause status; Z88.8 Allergy status to other drugs, medicaments and biological substances; Z79.899 Other long term (current) drug therapy; Z79.4 Long term (current) use of insulin; Z85.3 Personal history of malignant neoplasm of breast; Z95.5 Presence of coronary angioplasty implant and graft; Z90.11 Acquired absence of right breast and nipple; Z95.2 Presence of prosthetic heart valve; Z89.429 Acquired absence of other toe(s), unspecified side; Z80.8 Family history of malignant neoplasm of other organs or systems